=== PATIENT | female | born 1985 | race Caucasian/White ===

== ENCOUNTER 2016-11-12 17:15 | Emergency (ER) | payer OTHER ==
[2016-11-12] MEDS ORDERED: Zofran 4 MG/2 ML VIAL IV ONE ×2 (18:12→22:25)
[2016-11-12] MEDS ORDERED: Sodium Chloride 0.9% 1000 ML 1,000 ML IV SCH (18:15)
[2016-11-12] MEDS ORDERED: SUBLIMAZE 100 MCG/2 ML IV ONE (18:29)
[2016-11-12] MEDS ORDERED: Sodium Chloride 0.9% 1000 ML 1,000 ML ONE (18:31)
[2016-11-12] MEDS ORDERED: Zofran 4 MG/2 ML VIAL ONE ×2 (18:31→22:26)
[2016-11-12] MEDS ORDERED: SUBLIMAZE 100 MCG/2 ML ONE (18:31)
[2016-11-12 18:39] LABS: BASOPHIL % 0.8 % (0.0-0.4); Eosinophil % 2.3 % (0.00-5.0); Granulocytes % 44.1 % (36.0-66.0); Lymphocytes % 44.9 % (24.0-44.0); Mean Cell Volume 89.4 fl (78-100); Mean Corpuscular Hemoglobin 29.4 pg (26-32); Monocytes % 7.9 % (0.0-12.0); Platelet Count 381 K/mm3 (150-450); Red Blood Count 4.15 M/mm3 (4.1-5.4); Red Cell Distribution Width 12.7 % (11.5-14.0); White Blood Count 10.3 K/mm3 (4.0-10.5)
[2016-11-12 18:50] LABS: Bacteria FEW /HPF (NEGATIVE); COMPLETE URINE MICROSCOPIC? YES; Collection Type CLEAN CATCH; Epithelial Cells FEW /HPF (FEW); Ph 6.5 (5-6); WBC 0-2 /HPF (0-5)
[2016-11-12 19:08] LABS: ALBUMIN 3.7 g/dL (3.4-5.0); ALKALINE PHOSPHATASE 84 U/L (46-116); ANION GAP 12.3 MEQ/L (5-15); BILIRUBIN,TOTAL 0.8 mg/dL (0.2-1.0); BLOOD UREA NITROGEN 9 mg/dL (9-20); CHLORIDE 104 mEq/L (98-107); Carbon Dioxide 27.9 mEq/L (21-32); Glucose 106 MG/DL (70-110); LIPASE 117 U/L (73-393); Potassium 3.9 mEq/L (3.5-5.1); SGPT/ALT 19 U/L (12-78); SODIUM 140 mEq/L (136-145)
[2016-11-12 20:24] LABS: SGOT/AST 22 U/L (15-37)
[2016-11-12 21:51] VITALS: BP 127/60; PULSE 71; O2SAT 100
--- NOTE | 2016-11-12 22:07 | ERPHSYRPT ---
- History of Present Illness Time Seen by Provider: 11/12/16 18:45 Historian: patient Exam Limitations: clinical condition Patient Subjective Stated Complaint: pt co abd pain to epigastric area that radiates to back, pain on and off, nausea,no vomiting, no fever Triage Nursing Assessment: pt alert, walked in gaurding abd, pt moaning, resp easy.abd soft, no edema noted Physician History: PATIENT COMPLAINS OF INTERMITTENT RIGHT UPPER ABDOMINAL PAINS FOR 6 MONTHS WHICH RADIATES TO BACK. DENIES FEVER, CHILLS, NAUSEA OR EMESIS. PATIENT EVALUATED 08/11/[address] SCAN, 08/13/2016 NORMAL HIDA SCAN WITH EJECTION FRACTION 66% AND A NORMAL GALL BLADDER ULTRASOUND. PATIENT HAS HISTORY OF FIBROMYALGIA, HAS TAKEN OPIATES CHRONICALLY FOR YEARS. Timing/Duration: week(s) Activities at Onset: none Quality: cramping Abdominal Pain Onset Location: RUQ Pain Radiation: back Severity of Pain-Max: moderate Severity of Pain-Current: moderate Modifying Factors: Improves With: eating Associated Symptoms: denies symptoms Previous symptoms: same symptoms as today Allergies/Adverse Reactions: Penicillins Allergy (Intermediate, Verified 11/12/16 17:59) Hives cephalexin monohydrate [From Keflex] Allergy (Mild, Verified 11/12/16 17:59) Rash Home Medications: Alprazolam [Xanax] 1 mg PO TID 07/15/12 [History] Pregabalin [Lyrica] 75 mg PO BID 03/13/16 [History] Loratadine 10 mg [Claritin 10 mg] 10 mg PO DAILY 08/11/16 [History] Omeprazole 20 MG [Prilosec 20 mg] 20 mg PO DAILY 08/11/16 [History] Hydrocodone/APAP 10/325 mg [[place] 10/325 MG Tablet] 1 tab PO Q6H PRN PRN 09/08/16 [History] Hx Tetanus, Diphtheria Vaccination/Date Given: Yes Hx Influenza Vaccination/Date Given: No Hx Pneumococcal Vaccination/Date Given: No Immunizations Up to Date: Yes - Review of Systems Constitutional: No Fever, No Chills Eyes: No Symptoms Ears, Nose, & Throat: No Symptoms Respiratory: No Symptoms, No Cough, No Dyspnea Cardiac: No Symptoms, No Chest Pain, No Edema, No Syncope Abdominal/Gastrointestinal: Abdominal Pain, No Nausea, No Vomiting, No Diarrhea Genitourinary Symptoms: No Symptoms, No Dysuria Musculoskeletal: No Symptoms, No Back Pain, No Neck Pain Skin: No Symptoms, No Rash Neurological: No Dizziness, No Focal Weakness, No Sensory Changes Psychological: No Symptoms Endocrine: No Symptoms All Other Systems: Reviewed and Negative - Past Medical History Pertinent Past Medical History: Yes Neurological History: Migraines ENT History: No Pertinent History Cardiac History: Arrhythmia Respiratory History: No Pertinent History Endocrine Medical History: Other Musculoskeletal History: Fibromyalgia, Rheumatoid Arthritis GI Medical History: No Pertinent History History: No Pertinent History Psycho-Social History: Anxiety, Depression Female Reproductive Disorders: Other Other Medical History: OVARIAN CYSTS, hpv - Past Surgical History Past Surgical History: Yes Neuro Surgical History: No Pertinent History Cardiac: No Pertinent History Respiratory: No Pertinent History Gastrointestinal: No Pertinent History Genitourinary: No Pertinent History Musculoskeletal: No Pertinent History Female Surgical History: Section, Tubal Ligation Other Surgical History: colonoscopy et egd - Social History Smoking Status: Never smoker How long have you smoked: YRS Exposure to second hand smoke: Yes Drug Use: none Patient Lives Alone: No - Female History Hx Last Menstrual Period: week ago Hx Now: No - Nursing Vital Signs Nursing Vital Signs: Initial Vital Signs Temperature 98.1 F Temperature Source Oral Pulse Rate 71 Respiratory Rate 18 Blood Pressure [] 127/60 Pain Intensity 5 - Physical Exam General Appearance: mild distress Eye Exam: PERRL/EOMI, eyes nml inspection Ears, Nose, Throat Exam: normal ENT inspection, pharynx normal, moist mucous membranes Neck Exam: normal inspection, non-tender, supple, full range of motion Respiratory Exam: normal breath sounds, lungs clear, No respiratory distress Cardiovascular Exam: regular rate/rhythm, normal heart sounds Gastrointestinal/Abdomen Exam: soft, normal bowel sounds, tenderness (RIGHT UPPER QUAD TENDERNESS, NO GUARDING), No mass Back Exam: normal inspection, normal range of motion, No CVA tenderness, No vertebral tenderness Extremity Exam: normal inspection, normal range of motion, pelvis stable Neurologic Exam: alert, oriented x 3, cooperative, normal mood/affect, nml cerebellar function, sensation nml, No motor deficits Skin Exam: normal color, warm, dry SpO2 Interpretation: normal SpO2: 100 Oxygen Delivery: Room Air - CT Exams Abdomen/Pelvis CT Interpretation: Discussed w/radiologist (COMPARED TO THE STUDY OF 08/11/2017 , THERE IS NEW DIFFUSE MODERATE FECAL STASIS, WITHOUT OBSTRUCTION, INCIDENTAL HEPATIC AND RENAL CYST) Ordered Tests: Active Orders 24 hr Category Date Time Status IV Insertion STAT Care 11/12/16 18:12 Active ABDOMEN AND PELVIS W CONTRAST [CT] Stat Exams 11/12/16 20:37 Taken AMYLASE Stat Lab 11/12/16 18:30 Completed CBC W DIFF Stat Lab 11/12/16 18:30 Completed CMP Stat Lab 11/12/16 18:30 Completed HCG,QUALITATIVE URINE Stat Lab 11/12/16 18:34 Completed LIPASE Stat Lab 11/12/16 18:30 Completed UA W/ MICROSCOPIC Stat Lab 11/12/16 18:21 Completed Urine Triage Profile Stat Lab 11/12/16 18:34 Completed Medication Summary Generic Name Dose Route Start Last Admin Trade Name Freq PRN Reason Stop Dose Admin Sodium Chloride 1,000 mls @ 1,000 mls/hr 11/12/16 18:15 11/12/16 18:32 Sodium Chloride 0.9% 1000 Ml IV 12/12/16 18:14 1,000 mls/hr .Q1H ERI Administration Discontinued Medications Generic Name Dose Route Start Last Admin Trade Name Freq PRN Reason Stop Dose Admin Fentanyl Citrate 100 mcg 11/12/16 18:29 11/12/16 18:32 Sublimaze 100 Mcg/2 Ml IV 11/12/16 18:30 100 mcg STAT ONE Administration Fentanyl Citrate Confirm 11/12/16 18:31 Sublimaze 100 Mcg/2 Ml Administered 11/12/16 18:32 Dose 100 mcg .ROUTE .STK-MED ONE Sodium Chloride Confirm 11/12/16 18:31 Sodium Chloride 0.9% 1000 Ml Administered 11/12/16 18:32 Dose 1,000 mls @ ud .ROUTE .STK-MED ONE Ondansetron HCl 4 mg 11/12/16 18:12 11/12/16 18:32 Zofran 4 Mg/2 Ml Vial IV 11/12/16 18:13 4 mg STAT ONE Administration Ondansetron HCl Confirm 11/12/16 18:31 Zofran 4 Mg/2 Ml Vial Administered 11/12/16 18:32 Dose 4 mg .ROUTE .STK-MED ONE Ondansetron HCl 4 mg 11/12/16 22:25 02/27/17 22:27 Zofran 4 Mg/2 Ml Vial IV 11/12/16 22:26 4 mg STAT ONE Administration Ondansetron HCl Confirm 11/12/16 22:26 Zofran 4 Mg/2 Ml Vial Administered 11/12/16 22:27 Dose 4 mg .ROUTE .STK-MED ONE Promethazine HCl 25 mg 11/12/16 22:13 11/12/16 22:23 Phenergan 25 Mg Inj IM 11/12/16 22:14 Not Given STAT ONE Promethazine HCl Confirm 11/12/16 22:17 Phenergan 25 Mg Inj Administered 11/12/16 22:18 Dose 25 mg .ROUTE .STK-MED ONE Lab/Rad Data: Laboratory Result Diagrams 11/12/16 18:30 11/12/16 18:30 Laboratory Results 11/12/16 11/12/16 11/12/16 Range/Units 18:34 18:34 18:30 WBC (4.0-10.5) K/mm3 RBC (4.1-5.4) M/mm3 Hgb (12.0-16.0) gm/dl Hct (35-47) % MCV (78-100) fl MCH (26-32) pg MCHC (32-36) g/dl RDW (11.5-14.0) % Plt Count (150-450) K/mm3 MPV (6-9.5) fl Gran % (36.0-66.0) % Lymphocytes % (24.0-44.0) % Monocytes % (0.0-12.0) % Eosinophils % (0.00-5.0) % Basophils % (0.0-0.4) % Basophils # (0-0.4) Sodium 140 (136-145) mEq/L Potassium 3.9 (3.5-5.1) mEq/L Chloride 104 (98-107) mEq/L Carbon Dioxide 27.9 (21-32) mEq/L Anion Gap 12.3 (5-15) MEQ/L BUN 9 (9-20) mg/dL Creatinine 0.62 (0.55-1.30) mg/dl Estimated GFR > 60 ML/MIN Glucose 106 (70-110) MG/DL Calcium 8.9 (8.5-10.1) mg/dL Total Bilirubin 0.8 (0.2-1.0) mg/dL AST 22 (15-37) U/L ALT 19 (12-78) U/L Alkaline Phosphatase 84 (46-116) U/L Serum Total Protein 7.0 (6.4-8.2) gm/dL Albumin 3.7 (3.4-5.0) g/dL Amylase 40 (25-115) U/L Lipase 117 (73-393) U/L Ur Collection Type Urine Color (YELLOW) Urine Appearance (CLEAR) Urine pH (5-6) Ur Specific [place] (1.005-1.025) Urine Protein (Negative) Urine Glucose (UA) (NEGATIVE) mg/dL Urine Ketones (NEGATIVE) Urine Nitrite (NEGATIVE) Urine Bilirubin (NEGATIVE) Urine Urobilinogen (0-1) mg/dL Urine WBC (Auto) (NEGATIVE) Urine RBC (Auto) (0-5) Mac/ul Urine Microscopic RBC (0-2) /HPF Urine Microscopic WBC (0-5) /HPF Ur Epithelial Cells (FEW) /HPF Urine Bacteria (NEGATIVE) /HPF Urine HCG, Qual NEGATIVE (Negative) Urine Opiates Level POS. (NEGATIVE) Ur Methadone NEG. (NEGATIVE) Urine Barbiturates NEG. (NEGATIVE) Ur Phencyclidine (PCP) NEG. (NEGATIVE) Urine Amphetamine NEG. (NEGATIVE) U Benzodiazepine Level POS. (NEGATIVE) Urine Cocaine NEG. (NEGATIVE) Urine Marijuana (THC) NEG. (NEGATIVE) Specimen Received 11/12/16 11/12/16 Range/Units 18:30 18:21 WBC 10.3 (4.0-10.5) K/mm3 RBC 4.15 (4.1-5.4) M/mm3 Hgb 12.2 (12.0-16.0) gm/dl Hct 37.1 (35-47) % MCV 89.4 (78-100) fl MCH 29.4 (26-32) pg MCHC 32.9 (32-36) g/dl RDW 12.7 (11.5-14.0) % Plt Count 381 (150-450) K/mm3 MPV 9.0 (6-9.5) fl Gran % 44.1 (36.0-66.0) % Lymphocytes % 44.9 H (24.0-44.0) % Monocytes % 7.9 (0.0-12.0) % Eosinophils % 2.3 (0.00-5.0) % Basophils % 0.8 (0.0-0.4) % Basophils # 0.08 (0-0.4) Sodium (136-145) mEq/L Potassium (3.5-5.1) mEq/L Chloride (98-107) mEq/L Carbon Dioxide (21-32) mEq/L Anion Gap (5-15) MEQ/L BUN (9-20) mg/dL Creatinine (0.55-1.30) mg/dl Estimated GFR ML/MIN Glucose (70-110) MG/DL Calcium (8.5-10.1) mg/dL Total Bilirubin (0.2-1.0) mg/dL AST (15-37) U/L ALT (12-78) U/L Alkaline Phosphatase (46-116) U/L Serum Total Protein (6.4-8.2) gm/dL Albumin (3.4-5.0) g/dL Amylase (25-115) U/L Lipase (73-393) U/L Ur Collection Type CLEAN CATCH Urine Color YELLOW (YELLOW) Urine Appearance CLEAR (CLEAR) Urine pH 6.5 (5-6) Ur Specific [place] 1.020 (1.005-1.025) Urine Protein NEGATIVE (Negative) Urine Glucose (UA) NEGATIVE (NEGATIVE) mg/dL Urine Ketones NEGATIVE (NEGATIVE) Urine Nitrite NEGATIVE (NEGATIVE) Urine Bilirubin NEGATIVE (NEGATIVE) Urine Urobilinogen 0.2 (0-1) mg/dL Urine WBC (Auto) NEGATIVE (NEGATIVE) Urine RBC (Auto) TRACE-INTACT (0-5) Mac/ul Urine Microscopic RBC 2-5 (0-2) /HPF Urine Microscopic WBC 0-2 (0-5) /HPF Ur Epithelial Cells FEW (FEW) /HPF Urine Bacteria FEW (NEGATIVE) /HPF Urine HCG, Qual (Negative) Urine Opiates Level (NEGATIVE) Ur Methadone (NEGATIVE) Urine Barbiturates (NEGATIVE) Ur Phencyclidine (PCP) (NEGATIVE) Urine Amphetamine (NEGATIVE) U Benzodiazepine Level (NEGATIVE) Urine Cocaine (NEGATIVE) Urine Marijuana (THC) (NEGATIVE) Specimen Received 11/12/16 1830 - Departure Time of Disposition: 22:50 Departure Disposition: Home Clinical Impression: ABDOMINAL PAIN Condition: Stable Critical Care Time: No Referrals: FRED NEWELL [Primary Care Provider] - Additional Instructions: ZOFRAN 4MG EVERY 4 HOURS FOR NAUSEA. PHENERGAN SUPPOSITORY 25MG EVERY 4 HOURS FOR NAUSEA. CONSULT YOUR GENERAL SURGEON FOR FOLLOWUP. Prescriptions: Ondansetron [Zofran Odt] 4 mg PO Q4HPRN PRN #6 tab.rapdis PRN Reason: Nausea Promethazine HCl 25 mg Supp [Phenergan 25 mg Supp] 25 mg [place] Q4H PRN PRN # 10 supp.rect PRN Reason: Nausea
[2016-11-12] MEDS ORDERED: Phenergan 25 MG INJ IM ONE (22:13)
[2016-11-12] MEDS ORDERED: Phenergan 25 MG INJ ONE (22:17)
--- NOTE | 2016-11-13 08:53 | XRAY ---
Indication: Right upper quadrant and right chest/abdomen pain. Nausea. Multiple contiguous axial images obtained through the abdomen and pelvis using 80 cc Isovue 370 contrast only. Comparison: August 11, 2016. Lung bases essentially clear. Heart is not enlarged. Noncontrasted stomach and bowel loops appear nonobstructed. There is now moderate scattered colonic fecal debris throughout. Normal appendix. No free fluid/air. Uterus is prominent with thickened endometrial cavity, possibly related to menses. Endometrial cavity demonstrates configuration suggesting arcuate uterus. A few subcentimeter bilateral renal cysts. Tiny 4 mm right lobe hepatic cyst near the dome of the diaphragm. Remaining liver, gallbladder, pancreas, spleen, adrenal glands, kidneys, ureters, bladder, and aorta appear unremarkable. No pathologic retroperitoneal lymphadenopathy. Osseous structures intact. Impression: 1. Fecal stasis without obstruction. 2. No acute intra-abdominal/pelvic abnormalities. 3. Prominent arcuate uterus with thickened endometrial cavity presumed related to menses. Pelvic sonogram may yield further information if clinically warranted. 4. Incidental hepatic/renal cysts. CT DI 21.11
== END 2016-11-12 22:48 | disposition home or self-care (01) ==
LOC: ED 17:15
DX: R10.13 Epigastric pain (principal); R10.11 Right upper quadrant pain; Z79.891 Long term (current) use of opiate analgesic
CPT/HCPCS: 36000; 36415; 74177; 80053; 80307; 81000; 82150; 83690; 84703; 85025; 96360; 96374; 96375; 96376; 99284; J2405; J2550; J3010

== ENCOUNTER 2016-12-20 11:12 | Emergency (ER) | payer OTHER ==
[2016-12-20 11:40] VITALS: BP 146/83
[2016-12-20 12:05] VITALS: O2SAT 99
--- NOTE | 2016-12-20 12:50 | ERPHSYRPT ---
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 c/o pain on the left side of body including left back/side, left leg and left foot/ankle. pt states "it hurts walk and is tender to touch." Triage Nursing Assessment: PT WALKED INTO ER WITH A SLIGHT LIMP, FAVORING THE LEFT FOOT. SKIN WARM PINK AND DRY. REASPIRATIONS EVEN AND UNLABORED. NO EDEDMA NOT THE LEFT FOOT. SMALL BRUISE ON THE BACK/LEFT SIDE OF THE ANKLE. Physician History: CC: fell Hx: 31 y/o patient of Dr Florence fell on stairs yesterday. She has pain in the left hip and left lower leg/foot area. No neck or back injury. No head injury or LOC. She is planning to see pain management for chronic pain syndrome. No N/T /W. States not . Occurred: yesterday Reason for Fall: slipped (on 4 steps) Loss of Consciousness: no loss of consciousness Allergies/Adverse Reactions: Penicillins Allergy (Intermediate, Verified 11/12/16 17:59) Hives cephalexin monohydrate [From Keflex] Allergy (Mild, Verified 11/12/16 17:59) Rash Home Medications: Alprazolam [Xanax] 1 mg PO TID 07/15/12 [History] Pregabalin [Lyrica] 75 mg PO BID 03/13/16 [History] Omeprazole 20 MG [Prilosec 20 mg] 20 mg PO DAILY 08/11/16 [History] Hydrocodone/APAP 10/325 mg [Sage 10/325 MG Tablet] 1 tab PO Q6H PRN PRN 09/08/16 [History] Aspirin [Aspirin EC] 81 mg PO DAILY 12/06/16 [History] Celecoxib [Celebrex] 200 mg PO HS 12/06/16 [History] Hx Tetanus, Diphtheria Vaccination/Date Given: Yes Hx Influenza Vaccination/Date Given: No Hx Pneumococcal Vaccination/Date Given: No Immunizations Up to Date: Yes - Review of Systems Constitutional: No Symptoms Respiratory: No Dyspnea Cardiac: No Chest Pain Abdominal/Gastrointestinal: No Abdominal Pain Musculoskeletal: Back Pain (chronic), Fall, Joint Pain, No Neck Pain Skin: No Rash Neurological: No Focal Weakness, No Headache, No Parasthesia - Past Medical History Pertinent Past Medical History: Yes Neurological History: Migraines ENT History: No Pertinent History Cardiac History: Arrhythmia Respiratory History: No Pertinent History Endocrine Medical History: Other Musculoskeletal History: Arthritis, Fibromyalgia, Rheumatoid Arthritis GI Medical History: No Pertinent History History: No Pertinent History Psycho-Social History: Anxiety, Depression Female Reproductive Disorders: Other Other Medical History: OVARIAN CYSTS, hpv - Past Surgical History Past Surgical History: Yes Neuro Surgical History: No Pertinent History Cardiac: Cardiac Catheterization Respiratory: No Pertinent History Gastrointestinal: No Pertinent History Genitourinary: No Pertinent History Musculoskeletal: No Pertinent History Female Surgical History: Section, Tubal Ligation Other Surgical History: colonoscopy et egd. heart cath- sep 20 2016 - Social History Smoking Status: Never smoker How long have you smoked: YRS Exposure to second hand smoke: Yes Drug Use: none Patient Lives Alone: No - Female History Hx Last Menstrual Period: 11/25/2016 Hx Now: No - Nursing Vital Signs Nursing Vital Signs: Initial Vital Signs Temperature 98.3 F Temperature Source Oral Pulse Rate 99 Respiratory Rate 18 Blood Pressure [Left Arm] 146/83 Pain Intensity 8 - Ish Coma Score Best Eye Response (Ish): (4) open spontaneously Best Verbal Response (Homer): (5) oriented Best Motor Response (Homer): (6) obeys commands Homer Total: 15 - Physical Exam General Appearance: alert Head Injury: no evidence of injury Eye Exam: PERRL/EOMI Neck Exam: supple, No mid-line tenderness Respiratory/Chest Exam: normal breath sounds, No chest tenderness Cardiovascular Exam: regular rate/rhythm Gastrointestinal Exam: soft, No tenderness, No distention Extremity Exam: other (small left lower leg eccymcosis posterior lower. Some toe and ankle and hip tenderness. No swelling. Skin intact.) Neurologic Exam: alert, oriented x 3, cooperative, sensation nml, No motor deficits Skin Exam: warm, dry SpO2 Interpretation: normal SpO2: 99 Oxygen Delivery: Room Air - Course Nursing assessment & vital signs reviewed: Yes Ordered Tests: Active Orders 24 hr Category Date Time Status Marcello Bandage Application -[facility] STAT Care 12/20/16 13:00 Active Cold Application STAT Care 12/20/16 12:18 Active FOOT (MINIMUM 3 VIEWS) Stat Exams 12/20/16 12:17 Completed HIP UNI (2V) INCL PEL IF DONE Stat Exams 12/20/16 12:17 Completed LOWER LEG Stat Exams 12/20/16 12:17 Completed Medication Summary Generic Name Dose Route Start Last Admin Trade Name David PRN Reason Stop Dose Admin Ibuprofen 600 mg 12/20/16 13:02 Motrin 600 Mg PO 12/20/16 13:03 STAT ONE - Progress Progress Note: 12/20/16 12:50 Offered pt toradol shot and she declines. Xrays ordered. 12/20/16 13:02 She chose motrin here po as does not like needles. Xrays of foot, lower leg, hip negative. Marcello wrap applied. Instr givne. Counseled pt/family regarding: diagnosis, need for follow-up, rad results - Departure Time of Disposition: 13:03 Departure Disposition: Home Clinical Impression: Fall (on) (from) other stairs and steps, initial encounter Contusion of left leg Qualifiers: Encounter type: initial encounter Qualified Code(s): S80.12XA - Contusion of left lower leg, initial encounter Condition: Stable Critical Care Time: No Referrals: FRED FLORENCE [Primary Care Provider] - Instructions: Contusion Additional Instructions: SPRAINS/STRAINS/CONTUSIONS 1. Rest the affected area as much as possible for the next few days. 2. Apply ice to the affected area for 20-30 minutes at a time, several times a day. 3. If you receive an elastic wrap, wear it only while awake for comfort and support. Re-wrap the elastic wrap if it feels too tight or too loose. 4. If swelling is present, elevate the affected part above the level of the heart for at least 2 to 3 days. 5. Use splints, slings, or crutches as instructed. 6. Watch for severe swelling, coldness, numbness, and discoloration of the fingers and toes. See your family physician or return to the emergency department if any of these are noted. Rx motrin=ibuprofen Follow up with Dr Florence Prescriptions: Ibuprofen 600 mg PO Q6H PRN PRN #24 tablet PRN Reason: Pain
--- NOTE | 2016-12-20 12:54 | XRAY ---
Indication: Pain following fall down stairs. Comparison: None 2 views of the left lower leg demonstrates normal bones, articulation, and soft tissues.
--- NOTE | 2016-12-20 12:56 | XRAY ---
Indication: Pain following fall down stairs. Comparison: None 3 nonweightbearing views of the left foot demonstrates normal variant for prominent fused os tibiale externum. No other bony, articular, and soft tissues.
--- NOTE | 2016-12-20 12:58 | XRAY ---
Indication: Pain following fall down stairs. Comparison: None 2 views of the left hip demonstrates normal bones, articulation, and soft tissues.
[2016-12-20] MEDS ORDERED: MOTRIN 600 MG PO ONE (13:02)
[2016-12-20 13:37] VITALS: PULSE 78
== END 2016-12-20 13:20 | disposition home or self-care (01) ==
LOC: ED 11:12
DX: S80.12XA Contusion of left lower leg, initial encounter (principal); W10.9XXA Fall (on) (from) unspecified stairs and steps, initial encounter; M25.552 Pain in left hip; M79.662 Pain in left lower leg
CPT/HCPCS: 73502; 73590; 73630; 99283; 99284

== ENCOUNTER 2017-01-04 10:59 | Emergency (ER) | payer OTHER ==
[2017-01-04 11:08] VITALS: O2SAT 97
--- NOTE | 2017-01-04 11:29 | ERPHSYRPT ---
- History of Present Illness Time Seen by Provider: 01/04/17 11:19 Exam Limitations: no limitations Patient Subjective Stated Complaint: rt earache Triage Nursing Assessment: rt earache for 1 week. saw this week and dx inner ear. pain worse to rt ear and now lt ear is hurting also. no fever. no ear drainage Physician History: The patient is a 31-year-old female with her complaining of right ear pain for several days. She has been taking azithromycin for otitis media on the right side for 3 days. She states her right ear is hurting worse today. She had her daughter here at the hospital for an imaging study that was not performed and as she was sitting in the van she thought I might as well come in and be seen because my ear still hurting. She's been nauseated and has taken Zofran 4. Her past medical history is significant for GERD and frequent ear infections. Timing/Duration: gradual onset Severity: moderate ENT Location: ear (R) Prearrival Treatment: prescription meds Modifying Factors: Improves With: nothing Allergies/Adverse Reactions: Penicillins Allergy (Intermediate, Verified 01/04/17 11:08) Hives cephalexin monohydrate [From [employer]] Allergy (Mild, Verified 01/04/17 11:08) Rash Home Medications: Pregabalin [Lyrica] 75 mg PO BID 03/13/16 [History] Omeprazole 20 MG [Prilosec 20 mg] 20 mg PO DAILY 08/11/16 [History] Aspirin [Aspirin EC] 81 mg PO DAILY 12/06/16 [History] Celecoxib [Celebrex] 200 mg PO HS 12/06/16 [History] Hx Tetanus, Diphtheria Vaccination/Date Given: Yes Hx Influenza Vaccination/Date Given: No Hx Pneumococcal Vaccination/Date Given: No Immunizations Up to Date: Yes - Review of Systems Constitutional: No Fever, No Chills Eyes: No Symptoms Ears, Nose, & Throat: Ear Pain Respiratory: No Cough, No Dyspnea Cardiac: No Chest Pain, No Edema, No Syncope Abdominal/Gastrointestinal: Nausea Genitourinary Symptoms: No Dysuria Musculoskeletal: No Back Pain, No Neck Pain Skin: No Rash Neurological: No Dizziness, No Focal Weakness, No Sensory Changes Psychological: No Symptoms Endocrine: No Symptoms Hematologic/Lymphatic: No Symptoms Immunological/Allergic: No Symptoms All Other Systems: Reviewed and Negative - Past Medical History Pertinent Past Medical History: Yes Neurological History: Migraines ENT History: No Pertinent History Cardiac History: Arrhythmia Respiratory History: No Pertinent History Endocrine Medical History: Other Musculoskeletal History: Arthritis, Fibromyalgia, Rheumatoid Arthritis GI Medical History: Crohns Disease History: No Pertinent History Psycho-Social History: Anxiety, Depression Female Reproductive Disorders: Other Other Medical History: OVARIAN CYSTS, hpv - Past Surgical History Past Surgical History: Yes Neuro Surgical History: No Pertinent History Cardiac: Cardiac Catheterization Respiratory: No Pertinent History Gastrointestinal: No Pertinent History Genitourinary: No Pertinent History Musculoskeletal: No Pertinent History Female Surgical History: Section, Tubal Ligation Other Surgical History: colonoscopy et egd. heart cath- sep 20 2016 - Social History Smoking Status: Never smoker How long have you smoked: YRS Exposure to second hand smoke: Yes Drug Use: none Patient Lives Alone: No - Female History Hx Last Menstrual Period: 1 week Hx Now: No - Nursing Vital Signs Nursing Vital Signs: Initial Vital Signs Temperature 97.8 F Temperature Source Oral Pulse Rate 88 Respiratory Rate 18 Blood Pressure [Right Arm] 146/67 Pain Intensity 7 - Physical Exam General Appearance: no apparent distress, alert Eye Exam: bilateral eye: PERRL, EOMI Ear Exam: bilateral ear: auricle normal, canal normal, TM normal, other ( Examination of both ear canals show cerumen without impaction. The TMs were visualized bilaterally and they were normal in appearance. The portions of the ear canals that were not up secured by cerumen were normal in appearance. The patient was offered cerumen removal by irrigation and she declined.) Nasal Exam: normal inspection Throat Exam: pharynx normal, moist mucus membranes, No tonsillar exudate Neck Exam: supple Cardiovascular/Respiratory Exam: normal breath sounds, regular rate/rhythm Abdominal Exam: non-tender, soft Neurologic Exam: alert, oriented x 3, sensation nml, No motor deficits Skin Exam: normal color, warm, dry SpO2 Interpretation: normal SpO2: 97 Oxygen Delivery: Room Air - Progress Progress: unchanged Counseled pt/family regarding: diagnosis - Departure Time of Disposition: 11:37 Departure Disposition: Home Clinical Impression: Ear pain Condition: Stable Critical Care Time: No Additional Instructions: You have wax buildup in both ears that you can removed by using nightly baby oil drops to each ear followed by warm water flushes in the shower. Examination of both ears showed normal eardrums. Other than the wax buildup in the ear canals looked normal. Continue with the azithromycin as directed earlier. You had been given a prescription for Auralgan and prednisone. Take Auralgan 2-4 drops 3-4 times a day as needed. Take prednisone 1 mg daily for 7 days. Follow-up as needed. Prescriptions: Prednisone 1 mg PO DAILY #7 tablet
[2017-01-04 11:51] VITALS: BP 123/70; PULSE 92
== END 2017-01-04 11:50 | disposition home or self-care (01) ==
LOC: ED 10:59
DX: H92.03 Otalgia, bilateral (principal)
CPT/HCPCS: 99283; 99284

== ENCOUNTER 2017-04-12 22:02 | Emergency (ER) | payer OTHER ==
[2017-04-12] MEDS ORDERED: MORPHINE SULFATE 4 MG INJ IV ONE (22:28)
[2017-04-12] MEDS ORDERED: Zofran 4 MG/2 ML VIAL IV ONE ×2 (22:28→23:40)
[2017-04-12] MEDS ORDERED: Sodium Chloride 0.9% 1000 ML 1,000 ML IV SCH (22:30)
--- NOTE | 2017-04-12 22:34 | ERPHSYRPT ---
- History of Present Illness Time Seen by Provider: 04/12/17 22:30 Historian: patient Exam Limitations: no limitations Patient Subjective Stated Complaint: pt states she has been having epigastric pain radiates to rt side and back and nasueated, no emesis. Triage Nursing Assessment: pt alert and oriented, answers questions approp. pt ambulatory with steady gait noted. respirations nonlabored with lungs cta. abd soft and tender. Physician History: 32 y/o female comes to the ER with complaints of epigastric and right upper quadrant abdominal pain that started this evening. Pt describes the pain as sharp, constant, with radiation to back, 8/10, and not relieved by percocet. Pt also admits to dry heaving but no vomiting, fever, chills, diarrhea or constipation. Pt says that she was diagnosed with gallstones last year and was told to F/U with a surgeon but she never did. Timing/Duration: today Activities at Onset: none Quality: sharpness Abdominal Pain Onset Location: RUQ, epigastric Pain Radiation: shoulder, back Severity of Pain-Max: severe Severity of Pain-Current: severe Modifying Factors: Improves With: nothing Associated Symptoms: No fever/chills, No vomiting Previous symptoms: no prior history Allergies/Adverse Reactions: Penicillins Allergy (Intermediate, Verified 04/12/17 22:30) Hives cephalexin monohydrate [From [employer]] Allergy (Mild, Verified 04/12/17 22:30) Rash Home Medications: Pregabalin [Lyrica] 150 mg PO BID 03/13/16 [History] Omeprazole 20 MG [Prilosec 20 mg] 20 mg PO DAILY 08/11/16 [History] Atorvastatin Calcium [Lipitor] 10 mg PO DAILY 04/12/17 [History] Buprenorphine HCl [Belbuca] 150 mcg BC BID 04/12/17 [History] Mesalamine [Lialda] 2.4 gm PO DAILY 04/12/17 [History] Oxycodone HCl/Acetaminophen [Percocet 5-325 mg Tablet] 1 each PO TID PRN [History] Hx Tetanus, Diphtheria Vaccination/Date Given: Yes Hx Influenza Vaccination/Date Given: No Hx Pneumococcal Vaccination/Date Given: No Immunizations Up to Date: Yes - Review of Systems Constitutional: No Fever, No Chills Eyes: No Symptoms Ears, Nose, & Throat: No Symptoms Respiratory: No Cough, No Dyspnea Cardiac: No Chest Pain, No Edema, No Syncope Abdominal/Gastrointestinal: Abdominal Pain, Nausea, No Vomiting, No Diarrhea Genitourinary Symptoms: No Dysuria Musculoskeletal: No Back Pain, No Neck Pain Skin: No Rash Neurological: No Dizziness, No Focal Weakness, No Sensory Changes Psychological: No Symptoms Endocrine: No Symptoms All Other Systems: Reviewed and Negative - Past Medical History Pertinent Past Medical History: Yes Neurological History: Migraines ENT History: No Pertinent History Cardiac History: Arrhythmia, High Cholesterol Respiratory History: No Pertinent History Endocrine Medical History: Other Musculoskeletal History: Arthritis, Fibromyalgia GI Medical History: Colitis, Crohns Disease History: No Pertinent History Psycho-Social History: Anxiety, Depression Female Reproductive Disorders: Other Other Medical History: OVARIAN CYSTS, hpv - Past Surgical History Past Surgical History: Yes Neuro Surgical History: No Pertinent History Cardiac: Cardiac Catheterization Respiratory: No Pertinent History Gastrointestinal: No Pertinent History Genitourinary: No Pertinent History Musculoskeletal: No Pertinent History Female Surgical History: Section, Tubal Ligation Other Surgical History: colonoscopy et egd. heart cath- sep 20 2016 - Social History Smoking Status: Former smoker How long have you smoked: YRS Exposure to second hand smoke: Yes Drug Use: none Patient Lives Alone: No - Female History Hx Last Menstrual Period: current Hx Now: No - Nursing Vital Signs Nursing Vital Signs: Initial Vital Signs Temperature 98.0 F 04/12/17 22:20 Pulse Rate 70 04/12/17 22:20 Respiratory Rate 20 04/12/17 22:20 Blood Pressure 144/83 04/12/17 22:20 O2 Sat by Pulse Oximetry 96 04/12/17 22:20 Pain Scale Pain Intensity 6 - Physical Exam General Appearance: mild distress, alert Eye Exam: PERRL/EOMI, eyes nml inspection Ears, Nose, Throat Exam: normal ENT inspection, pharynx normal, moist mucous membranes Neck Exam: normal inspection, non-tender, supple, full range of motion Respiratory Exam: normal breath sounds, lungs clear, No respiratory distress Cardiovascular Exam: regular rate/rhythm, normal heart sounds Gastrointestinal/Abdomen Exam: soft, normal bowel sounds, tenderness, No distention, No mass, No hepatomegaly Back Exam: normal inspection, normal range of motion, No CVA tenderness, No vertebral tenderness Extremity Exam: normal inspection, normal range of motion, pelvis stable Neurologic Exam: alert, oriented x 3, cooperative, normal mood/affect, nml cerebellar function, sensation nml, No motor deficits Skin Exam: normal color, warm, dry SpO2: 96 Oxygen Delivery: Room Air Ordered Tests: Active Orders 24 hr Category Date Time Status EKG-ER Only STAT Care 04/12/17 22:28 Active IV Insertion STAT Care 04/12/17 22:28 Active NPO (ED) STAT Care 04/12/17 22:28 Active GALLBLADDER [US] Stat Exams 04/12/17 22:29 Taken AMYLASE Stat Lab 04/12/17 22:20 Completed CBC W DIFF Stat Lab 04/12/17 22:20 Completed CMP Stat Lab 04/12/17 22:20 Completed HCG QUALITATIVE,SERUM Stat Lab 04/12/17 22:20 Completed LIPASE Stat Lab 04/12/17 22:20 Completed TROPONIN Q3H Lab 04/12/17 22:30 Completed TROPONIN Q3H Lab 04/13/17 01:30 Ordered TROPONIN Q3H Lab 04/13/17 04:30 Ordered TROPONIN Q3H Lab 04/13/17 07:30 Ordered TROPONIN Q3H Lab 04/13/17 10:30 Ordered UA W/ MICROSCOPIC Stat Lab 04/12/17 23:37 Completed Medication Summary Generic Name Dose Route Start Last Admin Trade Name Freq PRN Reason Stop Dose Admin Sodium Chloride 1,000 mls @ 100 mls/hr 04/12/17 22:30 04/12/17 22:43 Sodium Chloride 0.9% 1000 Ml IV 05/12/17 22:29 100 mls/hr .Q10H ERI Administration Discontinued Medications Generic Name Dose Route Start Last Admin Trade Name Freq PRN Reason Stop Dose Admin Ketorolac Tromethamine 30 mg 04/12/17 23:47 04/12/17 23:49 Toradol 30 Mg Injection IV 04/12/17 23:48 30 mg STAT ONE Administration Ketorolac Tromethamine Confirm 04/12/17 23:49 Toradol 30 Mg Injection Administered 04/12/17 23:50 Dose 30 mg .ROUTE .STK-MED ONE Morphine Sulfate 4 mg 04/12/17 22:28 04/12/17 22:45 Morphine Sulfate 4 Mg Inj IV 04/12/17 22:29 4 mg STAT ONE Administration Morphine Sulfate Confirm 04/12/17 22:41 Morphine Sulfate 4 Mg Inj Administered 04/12/17 22:42 Dose 4 mg .ROUTE .STK-MED ONE Ondansetron HCl 4 mg 04/12/17 22:28 04/12/17 22:45 Zofran 4 Mg/2 Ml Vial IV 04/12/17 22:29 4 mg STAT ONE Administration Ondansetron HCl Confirm 04/12/17 22:41 Zofran 4 Mg/2 Ml Vial Administered 04/12/17 22:42 Dose 4 mg .ROUTE .STK-MED ONE Ondansetron HCl 4 mg 04/12/17 23:40 04/12/17 23:43 Zofran 4 Mg/2 Ml Vial IV 04/12/17 23:41 4 mg STAT ONE Administration Ondansetron HCl Confirm 04/12/17 23:43 Zofran 4 Mg/2 Ml Vial Administered 04/12/17 23:44 Dose 4 mg .ROUTE .STK-MED ONE Lab/Rad Data: Laboratory Result Diagrams 04/12/17 22:20 04/12/17 22:20 Laboratory Results 04/12/17 04/12/17 04/12/17 Range/Units 23:37 22:30 22:20 WBC (4.0-10.5) K/mm3 RBC (4.1-5.4) M/mm3 Hgb (12.0-16.0) gm/dl Hct (35-47) % MCV (78-100) fl MCH (26-32) pg MCHC (32-36) g/dl RDW (11.5-14.0) % Plt Count (150-450) K/mm3 MPV (6-9.5) fl Gran % (36.0-66.0) % Lymphocytes % (24.0-44.0) % Monocytes % (0.0-12.0) % Eosinophils % (0.00-5.0) % Basophils % (0.0-0.4) % Basophils # (0-0.4) Sodium (136-145) mEq/L Potassium (3.5-5.1) mEq/L Chloride (98-107) mEq/L Carbon Dioxide (21-32) mEq/L Anion Gap (5-15) MEQ/L BUN (9-20) mg/dL Creatinine (0.55-1.30) mg/dl Estimated GFR ML/MIN Glucose (70-110) MG/DL Calcium (8.5-10.1) mg/dL Total Bilirubin (0.2-1.0) mg/dL AST (15-37) U/L ALT (12-78) U/L Alkaline Phosphatase (46-116) U/L Troponin I < 0.017 (0.000-0.056) ng/ml Serum Total Protein (6.4-8.2) gm/dL Albumin (3.4-5.0) g/dL Amylase (25-115) U/L Lipase (73-393) U/L Serum , Qual NEGATIVE (Negative) Ur Collection Type CLEAN CATCH Urine Color YELLOW (YELLOW) Urine Appearance CLEAR (CLEAR) Urine pH 7.0 (5-6) Ur Specific [place] 1.010 (1.005-1.025) Urine Protein NEGATIVE (Negative) Urine Ketones NEGATIVE (NEGATIVE) Urine Blood 250 (0-5) Mac/ul Urine Nitrite NEGATIVE (NEGATIVE) Urine Bilirubin NEGATIVE (NEGATIVE) Urine Urobilinogen NORMAL (0-1) mg/dL Ur Leukocyte Esterase NEGATIVE (NEGATIVE) Urine Microscopic RBC 2-5 (0-2) /HPF Urine Bacteria RARE (NEGATIVE) /HPF Urine Glucose NEGATIVE (NEGATIVE) mg/dL Specimen Received [id number] 04/12/17 04/12/17 Range/Units 22:20 22:20 WBC 8.7 (4.0-10.5) K/mm3 RBC 4.35 (4.1-5.4) M/mm3 Hgb 12.3 (12.0-16.0) gm/dl Hct 37.2 (35-47) % MCV 85.5 (78-100) fl MCH 28.3 (26-32) pg MCHC 33.1 (32-36) g/dl RDW 13.7 (11.5-14.0) % Plt Count 362 (150-450) K/mm3 MPV 9.2 (6-9.5) fl Gran % 43.0 (36.0-66.0) % Lymphocytes % 43.6 (24.0-44.0) % Monocytes % 8.4 (0.0-12.0) % Eosinophils % 4.3 (0.00-5.0) % Basophils % 0.7 (0.0-0.4) % Basophils # 0.06 (0-0.4) Sodium 142 (136-145) mEq/L Potassium 4.0 (3.5-5.1) mEq/L Chloride 106 (98-107) mEq/L Carbon Dioxide 25.7 (21-32) mEq/L Anion Gap 14.1 (5-15) MEQ/L BUN 7 L (9-20) mg/dL Creatinine 0.65 (0.55-1.30) mg/dl Estimated GFR > 60 ML/MIN Glucose 99 (70-110) MG/DL Calcium 9.3 (8.5-10.1) mg/dL Total Bilirubin 0.60 (0.2-1.0) mg/dL AST 81 H (15-37) U/L ALT 128 H (12-78) U/L Alkaline Phosphatase 72 (46-116) U/L Troponin I (0.000-0.056) ng/ml Serum Total Protein 7.1 (6.4-8.2) gm/dL Albumin 3.7 (3.4-5.0) g/dL Amylase 40 (25-115) U/L Lipase 95 (73-393) U/L Serum , Qual (Negative) Ur Collection Type Urine Color (YELLOW) Urine Appearance (CLEAR) Urine pH (5-6) Ur Specific [place] (1.005-1.025) Urine Protein (Negative) Urine Ketones (NEGATIVE) Urine Blood (0-5) Mac/ul Urine Nitrite (NEGATIVE) Urine Bilirubin (NEGATIVE) Urine Urobilinogen (0-1) mg/dL Ur Leukocyte Esterase (NEGATIVE) Urine Microscopic RBC (0-2) /HPF Urine Bacteria (NEGATIVE) /HPF Urine Glucose (NEGATIVE) mg/dL Specimen Received - Progress Progress: improved Progress Note: 04/13/17 00:05 The patient feels better after receiving morphine and zofran. Pt still having some pain and received toradol with relief of pain. The US abdomen and labs are within normal limits. Pt will F/U with Dr Carlos IRVIN for any additional recommendations. - Departure Time of Disposition: 00:06 Departure Disposition: Home Clinical Impression: Abdominal pain Qualifiers: Abdominal location: epigastric Qualified Code(s): R10.13 - Epigastric pain Condition: Stable Critical Care Time: No Referrals: NICOLE GAN [Primary Care Provider] - Instructions: Abdominal Pain-Adult Additional Instructions: Follow up with Dr Gonzalez for any further recommendations. Prescriptions: Ketorolac Tromethamine [Toradol] 10 mg PO QID PRN #20 tablet PRN Reason: Pain Ondansetron [Zofran Odt] 4 mg PO TID PRN #15 tab.rapdis PRN Reason: Nausea/Vomiting
[2017-04-12 22:39] LABS: BASOPHIL % 0.7 % (0.0-0.4); Eosinophil % 4.3 % (0.00-5.0); Lymphocytes % 43.6 % (24.0-44.0); Mean Cell Volume 85.5 fl (78-100); Mean Corpuscular Hemoglobin 28.3 pg (26-32); Mean Platelet Volume 9.2 fl (6-9.5); Monocytes % 8.4 % (0.0-12.0); Platelet Count 362 K/mm3 (150-450); Red Blood Count 4.35 M/mm3 (4.1-5.4); Red Cell Distribution Width 13.7 % (11.5-14.0); White Blood Count 8.7 K/mm3 (4.0-10.5)
[2017-04-12] MEDS ORDERED: Zofran 4 MG/2 ML VIAL ONE ×2 (22:41→23:43)
[2017-04-12] MEDS ORDERED: MORPHINE SULFATE 4 MG INJ ONE (22:41)
[2017-04-12] MEDS ORDERED: Sodium Chloride 0.9% 1000 ML 1,000 ML ONE (22:42)
[2017-04-12 22:57] LABS: ALBUMIN 3.7 g/dL (3.4-5.0); ALKALINE PHOSPHATASE 72 U/L (46-116); ANION GAP 14.1 MEQ/L (5-15); BLOOD UREA NITROGEN 7 mg/dL (9-20); CHLORIDE 106 mEq/L (98-107); Carbon Dioxide 25.7 mEq/L (21-32); Glucose 99 MG/DL (70-110); LIPASE 95 U/L (73-393); SGOT/AST 81 U/L (15-37); SGPT/ALT 128 U/L (12-78); SODIUM 142 mEq/L (136-145); Total Protein 7.1 gm/dL (6.4-8.2)
[2017-04-12 23:43] LABS: Bilirubin NEGATIVE (NEGATIVE); Blood 250 Ery/ul (0-5); COMPLETE URINE MICROSCOPIC? YES; Collection Type CLEAN CATCH; Glucose NEGATIVE (NEGATIVE); Leukocyte Esterase NEGATIVE (NEGATIVE)
[2017-04-12 23:44] LABS: ADD URINE CULTURE? NO (NO); Bacteria RARE /HPF (NEGATIVE)
[2017-04-12] MEDS ORDERED: TORAdol 30 mg Injection IV ONE (23:47)
[2017-04-12] MEDS ORDERED: TORAdol 30 mg Injection ONE (23:49)
[2017-04-13 00:23] VITALS: BP 116/67; PULSE 82; O2SAT 97
--- NOTE | 2017-04-13 08:52 | XRAY ---
Indication: Abdominal pain. Two-dimensional right upper quadrant abdominal sonogram performed. Comparison: August 13, 2016. Again normal appearing gallbladder, pancreas, liver, and right kidney. Common bile duct measures 3.6 mm. Right kidney measures 10.9 cm in length. No ascites. Impression: Stable negative gallbladder sonogram. Common: Preliminary report was given.
== END 2017-04-13 00:26 | disposition home or self-care (01) ==
LOC: ED 22:02
DX: R10.13 Epigastric pain (principal); R10.11 Right upper quadrant pain
CPT/HCPCS: 36000; 36415; 76705; 80053; 81000; 82150; 83690; 84484; 84703; 85025; 93005; 96360; 96361; 96374; 96375; 96376; 99284; J1885; J2270; J2405

== ENCOUNTER 2018-02-27 23:16 | Emergency (ER) | payer SELFPAY ==
[2018-02-27 23:37] VITALS: PULSE 78
[2018-02-27] MEDS ORDERED: Sodium Chloride 0.9% 1000 ML 1,000 ML IV STA (23:56)
[2018-02-27] MEDS ORDERED: TORAdol 30 mg Injection IV ONE (23:56)
[2018-02-27] MEDS ORDERED: BENADRYL 50 MG/ML IV ONE (23:56)
--- NOTE | 2018-02-28 00:02 | ERPHSYRPT ---
- History of Present Illness Time Seen by Provider: 02/27/18 23:57 Source: patient Patient Subjective Stated Complaint: mingraine since today. pain in left side of head affecting her left eye. sinilar to other migraines. Triage Nursing Assessment: alert and in the dark. states migraine starting this morning. affecting her left eye. has had similar in the past. nausea without vomiting. 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 No fevers. Patient apparently presented to [facility] emergency room and decided to come here because "they didn't give me what medicines I wanted. Patient apparently got morphine, Phenergan at [facility]. Past medical history includes migraines, arrhythmia, arthritis, fibromyalgia, hypercholesterolemia, colitis, Crohn's disease, anxiety, depression, ovarian cysts Allergies include penicillin, Keflex Past surgical history includes , tubal ligation, colonoscopy, heart catheter . Timing/Duration: today Severity: moderate Modifying Factors: Improves With: other (patient seen at [facility] given injection of phenergan and morphine. lthis is a totaleft one hour ago) Associated Symptoms: nausea, headaches, No vomiting, No abdominal pain, No shortness of breath, No heartburn, No diaphoresis, No cough, No chills, No chest pain, No fever, No loss of appetite, No malaise, No rash, No syncope, No seizure, No weakness Allergies/Adverse Reactions: Penicillins Allergy (Intermediate, Verified 04/12/17 22:30) Hives cephalexin monohydrate [From Keflex] Allergy (Mild, Verified 04/12/17 22:30) Rash Home Medications: Pregabalin [Lyrica 75 mg Cap] 150 mg PO BID 03/13/16 [History] Omeprazole 20 MG [Prilosec 20 mg] 20 mg PO DAILY 08/11/16 [History] Atorvastatin Calcium [Lipitor] 10 mg PO DAILY 04/12/17 [History] Buprenorphine HCl [Belbuca] 150 mcg BC BID 04/12/17 [History] Mesalamine [Lialda] 2.4 gm PO DAILY 04/12/17 [History] Oxycodone HCl/Acetaminophen [Percocet 5-325 mg Tablet] 1 each PO TID PRN [History] Hx Tetanus, Diphtheria Vaccination/Date Given: Yes Hx Influenza Vaccination/Date Given: No Hx Pneumococcal Vaccination/Date Given: No - Review of Systems Constitutional: No Fever, No Chills Eyes: Eye Pain, Photophobia, No Discharge, No Eye Redness, No Itchy, No Tearing , No Vision Changes, No Double Vision Ears, Nose, & Throat: No Symptoms Respiratory: No Cough, No Dyspnea Cardiac: No Chest Pain, No Edema, No Syncope Abdominal/Gastrointestinal: No Abdominal Pain, No Nausea, No Vomiting, No Diarrhea Genitourinary Symptoms: No Dysuria Musculoskeletal: No Back Pain, No Neck Pain Skin: No Rash Neurological: Headache, No Dizziness, No Focal Weakness, No Gait Changes, No Irritability, No Lethargy, No Paralysis, No Parasthesia, No Seizure, No Sensory Changes, No Speech Changes, No Tics, No Tremors, No Vertigo Psychological: No Symptoms Endocrine: No Symptoms All Other Systems: Reviewed and Negative - Past Medical History Pertinent Past Medical History: Yes Neurological History: Migraines ENT History: No Pertinent History Cardiac History: Arrhythmia Respiratory History: No Pertinent History Endocrine Medical History: Other Musculoskeletal History: Arthritis, Fibromyalgia, Rheumatoid Arthritis GI Medical History: Crohns Disease History: No Pertinent History Psycho-Social History: Anxiety, Depression Female Reproductive Disorders: Other Other Medical History: OVARIAN CYSTS, hpv - Past Surgical History Past Surgical History: Yes Neuro Surgical History: No Pertinent History Cardiac: Cardiac Catheterization Respiratory: No Pertinent History Gastrointestinal: No Pertinent History Genitourinary: No Pertinent History Musculoskeletal: No Pertinent History Female Surgical History: Section, Tubal Ligation Other Surgical History: colonoscopy et egd. heart cath- sep 20 2016 - Social History Smoking Status: Never smoker How long have you smoked: YRS Exposure to second hand smoke: No Drug Use: none Patient Lives Alone: No - Female History Hx Now: No - Nursing Vital Signs Nursing Vital Signs: Initial Vital Signs Temperature 97.8 F 02/27/18 23:30 Pulse Rate 78 02/27/18 23:30 Respiratory Rate 18 02/27/18 23:30 Blood Pressure 152/80 02/27/18 23:30 O2 Sat by Pulse Oximetry 100 06/14/18 23:30 Pain Scale Pain Intensity 8 - Physical Exam General Appearance: mild distress Eye Exam: PERRL/EOMI, eyes nml inspection, other (fundi are unremarkable) Ears, Nose, Throat Exam: normal ENT inspection, TMs normal, pharynx normal, moist mucous membranes Neck Exam: normal inspection, non-tender, supple, full range of motion Respiratory Exam: normal breath sounds, lungs clear, No respiratory distress Cardiovascular Exam: regular rate/rhythm, normal heart sounds, normal peripheral pulses Gastrointestinal/Abdomen Exam: soft, normal bowel sounds, No tenderness, No mass Back Exam: normal inspection Extremity Exam: normal inspection, normal range of motion, pelvis stable Neurologic Exam: alert, oriented x 3, cooperative, liaison planner II-XII nml as tested, normal mood/affect, nml cerebellar function, nml station & gait, sensation nml, No motor deficits Skin Exam: normal color, warm, dry, No rash Lymphatic Exam: No adenopathy SpO2 Interpretation: normal (100% ) SpO2: 100 Ordered Tests: Active Orders 24 hr Category Date Time Status IV Insertion STAT Care 02/27/18 23:56 Active Medication Summary Generic Name Dose Route Start Last Admin Trade Name Freq PRN Reason Stop Dose Admin Sodium Chloride 1,000 mls @ 999 mls/hr 02/27/18 23:56 02/28/18 00:20 Sodium Chloride 0.9% 1000 Ml IV 02/28/18 00:56 999 mls/hr .Q1H1M STA Administration Discontinued Medications Generic Name Dose Route Start Last Admin Trade Name Freq PRN Reason Stop Dose Admin Diphenhydramine HCl 25 mg 02/27/18 23:56 02/28/18 00:19 Benadryl 50 Mg/Ml IV 02/27/18 23:57 25 mg STAT ONE Administration Diphenhydramine HCl Confirm 02/28/18 00:03 Benadryl 50 Mg/Ml Administered 02/28/18 00:04 Dose 50 mg .ROUTE .STK-MED ONE Sodium Chloride Confirm 02/28/18 00:03 Sodium Chloride 0.9% 1000 Ml Administered 02/28/18 00:04 Dose 1,000 mls @ ud .ROUTE .STK-MED ONE Ketorolac Tromethamine 30 mg 02/27/18 23:56 02/28/18 00:20 Toradol 30 Mg Injection IV 02/27/18 23:57 30 mg STAT ONE Administration Ketorolac Tromethamine Confirm 02/28/18 00:03 Toradol 30 Mg Injection Administered 02/28/18 00:04 Dose 30 mg .ROUTE .[employer]-MED ONE - Progress Progress: improved Progress Note: 02/28/18 00:29 32-year-old white female with history of migraines, arrhythmia, arthritis, fibromyalgia, hypercholesterolemia, colitis, Crohn's disease, anxiety, depression, ovarian cysts arrives with complaint of a headache frontal radiating to her left side with photophobia symptoms since this morning she was seen just prior to arrival here at [facility] where she received 8 mg of morphine and 50 mg of Phenergan. Patient is with a essentially normal physical examination,. Patient is given IV normal saline she is receiving 1 L at this time she is receiving Benadryl 25 mg IV and Toradol 30 mg IV. Patient states she is better she is not completely pain-free. Patient appears to be quite stable she is on Percocet at home and last filled oxycodone/acetaminophen 7.5/325 #60 on February 24, 2018 she states she only took one of these today. Will plan on discharging this patient patient to return home rest, dark quiet room,. She is to take pain medication as prescribed by her family doctor and Dr. Johns She is to follow-up with her family doctor. She is to return for acute distress or for severe symptoms. - Departure Time of Disposition: 00:31 Departure Disposition: Home Clinical Impression: Migraine headache Qualifiers: Migraine type: unspecified Status migrainosus presence: without status migrainosus Intractability: not intractable Qualified Code(s): G43.909 - Migraine, unspecified, not intractable, without status migrainosus Condition: Fair Critical Care Time: No Referrals: NICOLE GAN [Primary Care Provider] - Instructions: Headache, Adult (DC) Additional Instructions: Return home. Rest in a dark quiet room. Pain medications as prescribed by your family doctor. Follow-up with your family doctor. Return for acute distress or for severe symptoms.
[2018-02-28] MEDS ORDERED: TORAdol 30 mg Injection ONE (00:03)
[2018-02-28] MEDS ORDERED: BENADRYL 50 MG/ML ONE (00:03)
[2018-02-28] MEDS ORDERED: Sodium Chloride 0.9% 1000 ML 1,000 ML ONE (00:03)
[2018-02-28 01:25] VITALS: BP 115/66; O2SAT 95
== END 2018-02-28 01:25 | disposition home or self-care (01) ==
LOC: ED 23:16
DX: G43.909 Migraine, unspecified, not intractable, without status migrainosus (principal); Z79.899 Other long term (current) drug therapy
CPT/HCPCS: 36000; 96365; 96374; 96375; 99284; J1200; J1885

== ENCOUNTER 2018-06-09 20:16 | Emergency (ER) | payer SELFPAY ==
--- NOTE | 2018-06-09 21:33 | ERPHSYRPT ---
- History of Present Illness Time Seen by Provider: 06/09/18 21:12 Historian: patient, family Exam Limitations: no limitations Patient Subjective Stated Complaint: Has Crohns and was in [facility] last week and today, Dr. Bowden wanted her to be admitted today to prepare her for a scope and get her pain under control today but Dr. Rosenthal refused to admit her, Triage Nursing Assessment: Pt stated that she has Crohns and was in [facility] last week and was going to be transfered to but then Dr Gonzalez told her to go on home and he would see her in the office, she has called the office and the doctor is out until June, stated that she went to [facility] today due to Dr. Bowden wanted her to be admitted for pain control and get prepared for a scope, Dr. Rosenthal refused to admit her, c/o of pain in upper quadrants of abdomen and down the medial section, N&V yesterday, no issue with bowels, pulses normal, vitals wnl, last intake this am Physician History: The patient is a 33-year-old female with her family complaining of abdominal pain. She has a long history of abdominal pain. 2 weeks ago her pain started again. Last week she was at [facility] for one week. She saw a doctor in the [facility] ER on Saturday for the pain and was given morphine and Zofran with relief. Her pain was severe again today. She went back to the [facility] ER tonight and was given Zofran and morphine and fluids with some improvement. Her doctor had told her to go to the ER and be admitted. They did not admit her. She comes to this ER wanting to be admitted for a colonoscopy. After her discharge during the hospital admission at [facility] , she was to follow up with a GI doctor. She states the GI doctor is out of town until June. Her history is somewhat confusing but she tells me she has Crohn's disease of her small intestine. She also told me that her last colonoscopy showed ulcerative colitis in her colon. She is quite anxious. She has been taking Percocet 7.5 mg at home and Phenergan and Zofran at home as well without complete relief.Her past medical history is significant for possible Crohn's, possible ulcerative colitis, anxiety, abdominal pain that is chronic, tubal ligation. Timing/Duration: week(s) (2), gradual onset, worse Activities at Onset: none Quality: sharpness Abdominal Pain Onset Location: epigastric Pain Radiation: no radiation Severity of Pain-Max: moderate Severity of Pain-Current: moderate Modifying Factors: Improves With: eating (worse) Associated Symptoms: nausea, vomiting, No diarrhea Previous symptoms: same symptoms as today, recently seen, recent hospitalization , recently treated Allergies/Adverse Reactions: Penicillins Allergy (Intermediate, Verified 06/09/18 20:38) Hives cephalexin monohydrate [From Keflex] Allergy (Mild, Verified 06/09/18 20:38) Rash Home Medications: Pregabalin [Lyrica 75 mg Cap] 150 mg PO BID 03/13/16 [History] Omeprazole 20 MG [Prilosec 20 mg] 20 mg PO DAILY 08/11/16 [History] Atorvastatin Calcium [Lipitor] 10 mg PO DAILY 04/12/17 [History] Mesalamine [Lialda] 2.4 gm PO DAILY 04/12/17 [History] Alprazolam 1 mg [Xanax 1 mg] 1 mg PO BID 06/09/18 [History] Dicyclomine HCl 20 mg [Bentyl 20 mg] 20 mg PO QID 06/09/18 [History] Oxycodone HCl/Acetaminophen [Oxycodon-Acetaminophen 7.5-325] 1 tab PO TID PRN [History] Promethazine HCl 25 mg [Phenergan 25 mg] 25 mg PO Q6H PRN 06/09/18 [ History] Hx Tetanus, Diphtheria Vaccination/Date Given: Yes Hx Influenza Vaccination/Date Given: No Hx Pneumococcal Vaccination/Date Given: No - Review of Systems Constitutional: No Fever, No Chills Eyes: No Symptoms Ears, Nose, & Throat: No Symptoms Respiratory: No Cough, No Dyspnea Cardiac: No Chest Pain, No Edema, No Syncope Abdominal/Gastrointestinal: Abdominal Pain, Nausea, Vomiting Genitourinary Symptoms: No Dysuria Musculoskeletal: No Back Pain, No Neck Pain Skin: No Rash Neurological: No Dizziness, No Focal Weakness, No Sensory Changes Psychological: No Symptoms Endocrine: No Symptoms Hematologic/Lymphatic: No Symptoms Immunological/Allergic: No Symptoms All Other Systems: Reviewed and Negative - Past Medical History Pertinent Past Medical History: Yes Neurological History: Migraines ENT History: No Pertinent History Cardiac History: Arrhythmia Respiratory History: No Pertinent History Endocrine Medical History: Other Musculoskeletal History: Arthritis, Fibromyalgia, Rheumatoid Arthritis GI Medical History: Crohns Disease History: No Pertinent History Psycho-Social History: Anxiety, Depression Female Reproductive Disorders: Other Other Medical History: OVARIAN CYSTS, hpv - Past Surgical History Past Surgical History: Yes Neuro Surgical History: No Pertinent History Cardiac: Cardiac Catheterization Respiratory: No Pertinent History Gastrointestinal: No Pertinent History Genitourinary: No Pertinent History Musculoskeletal: No Pertinent History Female Surgical History: Section, Tubal Ligation Other Surgical History: colonoscopy et egd. heart cath- sep 20 2016 - Social History Smoking Status: Current every day smoker How long have you smoked: 15 yrs Exposure to second hand smoke: No Drug Use: none Patient Lives Alone: No - Female History Hx Last Menstrual Period: 05/28/2018 Hx Now: No (tubal) - Nursing Vital Signs Nursing Vital Signs: Initial Vital Signs Temperature 97.4 F 06/09/18 20:23 Pulse Rate 93 H 06/09/18 20:23 Blood Pressure 125/69 06/09/18 20:23 O2 Sat by Pulse Oximetry 99 06/09/18 20:23 Pain Scale Pain Intensity 7 - Physical Exam General Appearance: anxiety Eye Exam: PERRL/EOMI, eyes nml inspection Ears, Nose, Throat Exam: normal ENT inspection, pharynx normal, moist mucous membranes Neck Exam: normal inspection, non-tender, supple, full range of motion Respiratory Exam: normal breath sounds, lungs clear, No respiratory distress Cardiovascular Exam: regular rate/rhythm, normal heart sounds Gastrointestinal/Abdomen Exam: soft, tenderness (generalized), No rebound Pelvic Exam: not done Rectal Exam: not done Back Exam: normal inspection, normal range of motion, No CVA tenderness, No vertebral tenderness Extremity Exam: normal inspection, normal range of motion, pelvis stable Neurologic Exam: alert, oriented x 3, cooperative, normal mood/affect, nml cerebellar function, sensation nml, No motor deficits Skin Exam: normal color, warm, dry SpO2 Interpretation: normal SpO2: 99 Oxygen Delivery: Room Air - CT Exams Abdomen/Pelvis CT Interpretation: Tele-radiologist Report (per Dr Miller), No appendicitis, Other (no acute findings.) Ordered Tests: Active Orders 24 hr Category Date Time Status Clean Catch Urine Specimen STAT Care 06/09/18 21:43 Active IV Insertion STAT Care 06/09/18 21:43 Active ABDOMEN AND PELVIS W/0 CONTRAS [CT] Stat Exams 06/09/18 21:43 Taken AMYLASE Stat Lab 06/09/18 21:45 Completed CBC W DIFF Stat Lab 06/09/18 21:45 Completed CMP Stat Lab 06/09/18 21:45 Completed HCG QUALITATIVE,SERUM Stat Lab 06/09/18 21:45 Completed LIPASE Stat Lab 06/09/18 21:45 Completed Lactic Acid Stat Lab 06/09/18 22:15 Results UA W/RFX UR CULTURE Stat Lab 06/09/18 22:45 Completed Urine Triage Profile Stat Lab 06/09/18 22:45 Completed Medication Summary Discontinued Medications Generic Name Dose Route Start Last Admin Trade Name Freq PRN Reason Stop Dose Admin Sodium Chloride 1,000 mls @ 999 mls/hr 06/09/18 21:43 06/09/18 23:33 Sodium Chloride 0.9% 1000 Ml IV 06/09/18 22:43 Infused .Q1H1M STA Infusion Sodium Chloride Confirm 06/09/18 21:50 Sodium Chloride 0.9% 1000 Ml Administered 06/09/18 21:51 Dose 1,000 mls @ ud .ROUTE .STK-MED ONE Lorazepam 1 mg 06/09/18 21:46 06/09/18 21:54 Ativan 2 Mg/1 Ml Vial IV 06/09/18 21:47 1 mg STAT ONE Administration Lorazepam Confirm 06/09/18 21:50 Ativan 2 Mg/1 Ml Vial Administered 06/09/18 21:51 Dose 2 mg .ROUTE .STK-MED ONE Morphine Sulfate 4 mg 06/09/18 21:43 06/09/18 21:53 Morphine Sulfate 4 Mg Inj IV 06/09/18 21:44 4 mg STAT ONE Administration Morphine Sulfate Confirm 06/09/18 21:50 Morphine Sulfate 4 Mg Inj Administered 06/09/18 21:51 Dose 4 mg .ROUTE .STK-MED ONE Ondansetron HCl 4 mg 06/09/18 21:43 06/09/18 21:53 Zofran 4 Mg/2 Ml Vial IV 06/09/18 21:44 4 mg STAT ONE Administration Ondansetron HCl Confirm 06/09/18 21:50 Zofran 4 Mg/2 Ml Vial Administered 06/09/18 21:51 Dose 4 mg .ROUTE .STK-MED ONE Lab/Rad Data: Laboratory Result Diagrams 06/09/18 21:45 06/09/18 21:45 Laboratory Results 06/09/18 06/09/18 06/09/18 Range/Units 22:45 22:45 22:15 WBC (4.0-10.5) K/mm3 RBC (4.1-5.4) M/mm3 Hgb (12.0-16.0) gm/dl Hct (35-47) % MCV (78-100) fl MCH (26-32) pg MCHC (32-36) g/dl RDW (11.5-14.0) % Plt Count (150-450) K/mm3 MPV (6-9.5) fl Gran % (36.0-66.0) % Eos # (Auto) (0-0.5) Absolute Lymphs (auto) (1.0-4.6) Absolute Monos (auto) (0.0-1.3) Lymphocytes % (24.0-44.0) % Monocytes % (0.0-12.0) % Eosinophils % (0.00-5.0) % Basophils % (0.0-0.4) % Absolute Granulocytes (1.4-6.9) Basophils # (0-0.4) Sodium (137-145) mmol/L Potassium (3.5-5.1) mmol/L Chloride (98-107) mmol/L Carbon Dioxide (22-30) mmol/L Anion Gap (5-15) MEQ/L BUN (7-17) mg/dL Creatinine (0.52-1.04) mg/dL Estimated GFR ML/MIN Glucose (74-106) mg/dL Lactic Acid 2.1 H (0.4-2.0) Calcium (8.4-10.2) mg/dL Total Bilirubin (0.2-1.3) mg/dL AST (14-36) U/L ALT (0-35) U/L Alkaline Phosphatase (38-126) U/L Serum Total Protein (6.3-8.2) g/dL Albumin (3.5-5.0) g/dL Amylase (30-110) U/L Lipase (23-300) U/L Serum , Qual (Negative) Ur Collection Type CLEAN CATCH Urine Color LT.YELLOW (YELLOW) Urine Appearance CLEAR (CLEAR) Urine pH 8.0 (5-6) Ur Specific [place] 1.010 (1.005-1.025) Urine Protein NEGATIVE (Negative) Urine Ketones NEGATIVE (NEGATIVE) Urine Blood NEGATIVE (0-5) Mac/ul Urine Nitrite NEGATIVE (NEGATIVE) Urine Bilirubin NEGATIVE (NEGATIVE) Urine Urobilinogen NORMAL (0-1) mg/dL Ur Leukocyte Esterase NEGATIVE (NEGATIVE) Urine Culture Reflexed NO (NO) Urine Glucose NEGATIVE (NEGATIVE) mg/dL Urine Opiates Level POSITIVE (NEGATIVE) Ur Methadone NEGATIVE (NEGATIVE) Urine Barbiturates NEGATIVE (NEGATIVE) Ur Phencyclidine (PCP) NEGATIVE (NEGATIVE) Urine Amphetamine NEGATIVE (NEGATIVE) U Benzodiazepine Level POSITIVE (NEGATIVE) Urine Cocaine NEGATIVE (NEGATIVE) Urine Marijuana (THC) NEGATIVE (NEGATIVE) 06/09/18 06/09/18 06/09/18 Range/Units 21:45 21:45 21:45 WBC 9.4 (4.0-10.5) K/mm3 RBC 4.61 (4.1-5.4) M/mm3 Hgb 13.4 (12.0-16.0) gm/dl Hct 40.5 (35-47) % MCV 87.9 (78-100) fl MCH 29.1 (26-32) pg MCHC 33.1 (32-36) g/dl RDW 13.7 (11.5-14.0) % Plt Count 367 (150-450) K/mm3 MPV 9.7 H (6-9.5) fl Gran % 55.5 (36.0-66.0) % Eos # (Auto) 0.24 (0-0.5) Absolute Lymphs (auto) 3.46 (1.0-4.6) Absolute Monos (auto) 0.45 (0.0-1.3) Lymphocytes % 36.7 (24.0-44.0) % Monocytes % 4.8 (0.0-12.0) % Eosinophils % 2.5 (0.00-5.0) % Basophils % 0.5 (0.0-0.4) % Absolute Granulocytes 5.22 (1.4-6.9) Basophils # 0.05 (0-0.4) Sodium 140 (137-145) mmol/L Potassium 4.1 (3.5-5.1) mmol/L Chloride 104 (98-107) mmol/L Carbon Dioxide 26 (22-30) mmol/L Anion Gap 14.0 (5-15) MEQ/L BUN 7 (7-17) mg/dL Creatinine 0.51 L (0.52-1.04) mg/dL Estimated GFR > 60.0 ML/MIN Glucose 96 (74-106) mg/dL Lactic Acid (0.4-2.0) Calcium 9.5 (8.4-10.2) mg/dL Total Bilirubin 0.40 (0.2-1.3) mg/dL AST 35 (14-36) U/L ALT 32 (0-35) U/L Alkaline Phosphatase 60 (38-126) U/L Serum Total Protein 6.8 (6.3-8.2) g/dL Albumin 4.2 (3.5-5.0) g/dL Amylase 49 (30-110) U/L Lipase 30 (23-300) U/L Serum , Qual NEGATIVE (Negative) Ur Collection Type Urine Color (YELLOW) Urine Appearance (CLEAR) Urine pH (5-6) Ur Specific [place] (1.005-1.025) Urine Protein (Negative) Urine Ketones (NEGATIVE) Urine Blood (0-5) Mac/ul Urine Nitrite (NEGATIVE) Urine Bilirubin (NEGATIVE) Urine Urobilinogen (0-1) mg/dL Ur Leukocyte Esterase (NEGATIVE) Urine Culture Reflexed (NO) Urine Glucose (NEGATIVE) mg/dL Urine Opiates Level (NEGATIVE) Ur Methadone (NEGATIVE) Urine Barbiturates (NEGATIVE) Ur Phencyclidine (PCP) (NEGATIVE) Urine Amphetamine (NEGATIVE) U Benzodiazepine Level (NEGATIVE) Urine Cocaine (NEGATIVE) Urine Marijuana (THC) (NEGATIVE) - Progress Progress: improved Progress Note: 06/10/18 00:05 Pt given MSO4 4 mg, ativan 1 mg, and NS IV with good results. Discussed pt with Dr Gonzalez who will see pt tomorrow morning as a walk-in. Counseled pt/family regarding: lab results, diagnosis, need for follow-up (with Dr Gonzalez.), rad results - Departure Time of Disposition: 00:06 Departure Disposition: Home Clinical Impression: Chronic abdominal pain Condition: Stable Critical Care Time: No Referrals: NICOLE BOWDEN [Primary Care Provider] - Additional Instructions: You have chronic abdominal pain from an unknown cause. You were given morphine 4 mg, Ativan 1 mg, and fluids by IV in the ER. You are to be seen as a walk-in patient at 's office tomorrow morning.
[2018-06-09] MEDS ORDERED: Sodium Chloride 0.9% 1000 ML 1,000 ML IV STA (21:43)
[2018-06-09] MEDS ORDERED: Zofran 4 MG/2 ML VIAL IV ONE (21:43)
[2018-06-09] MEDS ORDERED: MORPHINE SULFATE 4 MG INJ IV ONE (21:43)
[2018-06-09] MEDS ORDERED: Ativan 2 MG/1 ML VIAL IV ONE (21:46)
[2018-06-09] MEDS ORDERED: Sodium Chloride 0.9% 1000 ML 1,000 ML ONE (21:50)
[2018-06-09] MEDS ORDERED: Ativan 2 MG/1 ML VIAL ONE (21:50)
[2018-06-09] MEDS ORDERED: Zofran 4 MG/2 ML VIAL ONE (21:50)
[2018-06-09] MEDS ORDERED: MORPHINE SULFATE 4 MG INJ ONE (21:50)
[2018-06-09 22:02] LABS: BASOPHIL % 0.5 % (0.0-0.4); Basophil (Absolute #) 0.05 (0-0.4); Eosinophil % 2.5 % (0.00-5.0); Eosinophil (Absolute #) 0.24 (0-0.5); Granulocyte Absolute (ANC) 5.22 (1.4-6.9); Granulocytes % 55.5 % (36.0-66.0); Hematocrit 40.5 % (35-47); Hemoglobin 13.4 gm/dl (12.0-16.0); Lymphocyte (Absolute #) 3.46 (1.0-4.6); Lymphocytes % 36.7 % (24.0-44.0); Mean Cell Volume 87.9 fl (78-100); Mean Corpuscular Hemoglobin 29.1 pg (26-32); Mean Corpuscular Hgb Concent. 33.1 g/dl (32-36); Mean Platelet Volume 9.7 fl (6-9.5); Monocyte (Absolute #) 0.45 (0.0-1.3); Monocytes % 4.8 % (0.0-12.0); Platelet Count 367 K/mm3 (150-450); Red Blood Count 4.61 M/mm3 (4.1-5.4); Red Cell Distribution Width 13.7 % (11.5-14.0); White Blood Count 9.4 K/mm3 (4.0-10.5)
[2018-06-09 22:06] VITALS: PULSE 94; O2SAT 99
[2018-06-09 22:21] LABS: Lactic Acid 2.1 (0.4-2.0)
[2018-06-09 22:27] LABS: ALBUMIN 4.2 g/dL (3.5-5.0); ALKALINE PHOSPHATASE 60 U/L (38-126); AMYLASE 49 U/L (30-110); BLOOD UREA NITROGEN 7 mg/dL (7-17); CHLORIDE 104 mmol/L (98-107); Calcium 9.5 mg/dL (8.4-10.2); Carbon Dioxide 26 mmol/L (22-30); Creatinine 1 0.51 mg/dL (0.52-1.04); Glucose 96 mg/dL (74-106); LIPASE 30 U/L (23-300); Potassium 4.1 mmol/L (3.5-5.1); SGOT/AST 35 U/L (14-36); SGPT/ALT 32 U/L (0-35); SODIUM 140 mmol/L (137-145); Total Protein 6.8 g/dL (6.3-8.2)
[2018-06-09 22:56] LABS: Appearance CLEAR (CLEAR); Bilirubin NEGATIVE (NEGATIVE); Blood NEGATIVE Ery/ul (0-5); Glucose NEGATIVE (NEGATIVE); Ketones NEGATIVE (NEGATIVE); Leukocyte Esterase NEGATIVE (NEGATIVE); Nitrite NEGATIVE (NEGATIVE); Protein,Urine Dip NEGATIVE (Negative); Urobilinogen NORMAL mg/dL (0-1)
[2018-06-09 23:11] LABS: Amphetamine,Urine NEGATIVE (NEGATIVE); Barbiturate,Urine NEGATIVE (NEGATIVE); Benzodiazepine,Urine POSITIVE (NEGATIVE); Cocaine,Urine NEGATIVE (NEGATIVE); Methadone,Urine NEGATIVE (NEGATIVE); Opiate,Urine POSITIVE (NEGATIVE); PCP,Urine NEGATIVE (NEGATIVE); THC,Urine NEGATIVE (NEGATIVE)
[2018-06-10 00:10] VITALS: BP 122/93
--- NOTE | 2018-06-10 09:06 | XRAY ---
Indication: Abdominal pain, nausea, vomiting, and diarrhea 2 weeks. Multiple contiguous axial images obtained through the abdomen and pelvis without contrast as ordered. Comparison: November 12, 2016. Lung bases dense is mild bibasilar dependent atelectasis. Heart is not enlarged. Noncontrasted stomach and bowel loops appear nonobstructed. Normal appendix. No free fluid/air. Again prominent uterus with thickened endometrial cavity possibly related to menses. Stable tiny right lobe hepatic cyst. Remaining liver, gallbladder, pancreas, spleen, adrenal glands, kidneys, ureters, bladder, and aorta appear unremarkable for noncontrast exam. Osseous structures intact. No ventral or inguinal hernias. Impression: 1. Again prominent uterus with thickened endometrial cavity. Correlate with menstrual cycle. Pelvic sonogram may yield further information if clinically warranted. 2. Stable tiny hepatic cyst. Comment: Preliminary interpretation was made by [facility]. No discrepancy. CT DI 16.96
== END 2018-06-10 00:17 | disposition home or self-care (01) ==
LOC: ED 20:16
DX: R10.9 Unspecified abdominal pain (principal); R11.2 Nausea with vomiting, unspecified; Z79.899 Other long term (current) drug therapy
CPT/HCPCS: 36000; 36415; 74176; 80053; 80307; 81003; 82150; 83605; 83690; 84703; 85025; 96360; 96374; 96375; 99284; J2060; J2270; J2405

== ENCOUNTER 2018-07-08 13:34 | Emergency (ER) | payer MEDICAID ==
[2018-07-08 14:32] VITALS: PULSE 97
--- NOTE | 2018-07-08 14:46 | ERPHSYRPT ---
- History of Present Illness Time Seen by Provider: 07/08/18 14:25 Source: patient Patient Subjective Stated Complaint: HERE FOR SORETHROAT AND ACHES FOR 2 DAYS, Triage Nursing Assessment: PT ALERT, RESP EASY, SKIN W/D/P. THROAT RED Physician History: 33 y/o white female presents with 2 day h/o sore throat not responding to chloraseptic or cough drops. has a tendency to get bronchitis and pneumonia. Timing/Duration: gradual onset, days (2) Severity: mild ENT Location: throat Prearrival Treatment: over the counter meds Modifying Factors: Improves With: coughing Associated Symptoms: cough, sore throat Allergies/Adverse Reactions: Penicillins Allergy (Intermediate, Verified 06/09/18 20:38) Hives cephalexin monohydrate [From Keflex] Allergy (Mild, Verified 06/09/18 20:38) Rash Home Medications: Pregabalin [Lyrica 75 mg Cap] 150 mg PO BID 03/13/16 [History] Omeprazole 20 MG [Prilosec 20 mg] 20 mg PO DAILY 08/11/16 [History] Atorvastatin Calcium [Lipitor] 10 mg PO DAILY 04/12/17 [History] Mesalamine [Lialda] 2.4 gm PO DAILY 04/12/17 [History] Alprazolam 1 mg [Xanax 1 mg] 1 mg PO BID 06/09/18 [History] Dicyclomine HCl 20 mg [Bentyl 20 mg] 20 mg PO QID 06/09/18 [History] Oxycodone HCl/Acetaminophen [Oxycodon-Acetaminophen 7.5-325] 1 tab PO TID PRN [History] Promethazine HCl 25 mg [Phenergan 25 mg] 25 mg PO Q6H PRN 06/09/18 [ History] Hx Tetanus, Diphtheria Vaccination/Date Given: Yes Hx Influenza Vaccination/Date Given: No Hx Pneumococcal Vaccination/Date Given: No Immunizations Up to Date: Yes - Review of Systems Constitutional: No Symptoms, Fever Eyes: No Symptoms Ears, Nose, & Throat: Painful Swallowing Respiratory: Cough, No Dyspnea, No Stridor, No Wheezing Cardiac: No Symptoms, No Chest Pain, No Edema, No Palpitations, No Syncope Abdominal/Gastrointestinal: No Symptoms, No Abdominal Pain, No Nausea, No Vomiting, No Diarrhea Genitourinary Symptoms: No Symptoms, No Dysuria, No Frequency, No Hematuria Musculoskeletal: No Symptoms, No Back Pain Skin: No Symptoms Neurological: No Symptoms Psychological: No Symptoms Endocrine: No Symptoms Hematologic/Lymphatic: No Symptoms Immunological/Allergic: No Symptoms All Other Systems: Reviewed and Negative - Past Medical History Pertinent Past Medical History: Yes Neurological History: Migraines ENT History: No Pertinent History Cardiac History: Arrhythmia Respiratory History: No Pertinent History Endocrine Medical History: Other Musculoskeletal History: Arthritis, Fibromyalgia, Rheumatoid Arthritis GI Medical History: Crohns Disease History: No Pertinent History Psycho-Social History: Anxiety, Depression Female Reproductive Disorders: Other Other Medical History: OVARIAN CYSTS, hpv - Past Surgical History Past Surgical History: Yes Neuro Surgical History: No Pertinent History Cardiac: Cardiac Catheterization Respiratory: No Pertinent History Gastrointestinal: No Pertinent History Genitourinary: No Pertinent History Musculoskeletal: No Pertinent History Female Surgical History: Section, Tubal Ligation Other Surgical History: colonoscopy et egd. heart cath- sep 20 2016 - Social History Smoking Status: Current every day smoker How long have you smoked: 15 yrs Exposure to second hand smoke: Yes Drug Use: none Patient Lives Alone: No - Female History Hx Last Menstrual Period: 4 DAYS AGO Hx Now: No - Nursing Vital Signs Nursing Vital Signs: Initial Vital Signs Temperature 98.0 F 07/08/18 14:26 Pulse Rate 97 H 07/08/18 14:26 Respiratory Rate 16 07/08/18 14:26 Blood Pressure 147/83 07/08/18 14:26 O2 Sat by Pulse Oximetry 98 07/08/18 14:26 Pain Scale Pain Intensity 8 - Physical Exam General Appearance: no apparent distress, mild distress, alert Eye Exam: bilateral eye: normal inspection, PERRL, EOMI Ear Exam: bilateral ear: auricle normal, canal normal, TM normal Nasal Exam: normal inspection Throat Exam: pharynx tenderness, uvula swelling Neck Exam: normal inspection, non-tender, supple, full range of motion, trachea midline Cardiovascular/Respiratory Exam: chest non-tender, normal breath sounds, regular rate/rhythm, heart sounds normal Abdominal Exam: non-tender, soft, No guarding, No tenderness Neurologic Exam: alert, oriented x 3, cooperative, tack cleaner II-XII nml as tested Skin Exam: normal color, warm SpO2 Interpretation: normal SpO2: 98 Oxygen Delivery: Room Air - Course Nursing assessment & vital signs reviewed: Yes - Progress Progress: unchanged Counseled pt/family regarding: diagnosis, need for follow-up - Departure Time of Disposition: 14:52 Departure Disposition: Home Clinical Impression: Pharyngitis Condition: Stable Critical Care Time: No Referrals: NICOLE GAN [Primary Care Provider] - Additional Instructions: drink plenty of fluids. follow up with primary doctor for persistent symptoms Prescriptions: Azithromycin 250 mg [Zithromax 250 MG TABLET] 250 mg PO ZPACK #6 tablet Hydrocodone Bit/Acetaminophen [Hydrocodone-Acetaminophen Soln] 10 ml PO Q6H # 120 ml Prednisone 10 mg [Deltasone 10 mg] 10 mg PO TID #12 tablet
[2018-07-08] MEDS ORDERED: HYDROCODONE-ACETAMIN 2.5-108/5 ML SOLUTION PO STA (14:47)
[2018-07-08] MEDS ORDERED: DELTASONE 20 MG ONE (15:02)
[2018-07-08] MEDS ORDERED: HYDROCODONE-ACETAMIN 2.5-108/5 ML SOLUTION ONE (15:02)
[2018-07-08 15:27] VITALS: BP 120/74; O2SAT 97
[2018-07-09] MEDS ORDERED: DELTASONE 20 MG PO ONE (14:47)
== END 2018-07-08 15:29 | disposition home or self-care (01) ==
LOC: ED 13:34
DX: J02.9 Acute pharyngitis, unspecified (principal); Z79.899 Other long term (current) drug therapy
CPT/HCPCS: 99283; A9270-GY

== ENCOUNTER 2018-10-08 23:31 | Emergency (ER) | payer MEDICAID ==
[2018-10-09] MEDS ORDERED: Zofran 4 MG/2 ML VIAL IV ONE (01:06)
[2018-10-09] MEDS ORDERED: Zofran 4 MG/2 ML VIAL ONE (01:22)
[2018-10-09 01:46] LABS: BASOPHIL % 0.3 % (0.0-0.4); Basophil (Absolute #) 0.03 (0-0.4); Eosinophil % 1.7 % (0.00-5.0); Eosinophil (Absolute #) 0.17 (0-0.5); Granulocytes % 51.2 % (36.0-66.0); Hematocrit 39.2 % (35-47); Hemoglobin 12.8 gm/dl (12.0-16.0); Lymphocyte (Absolute #) 3.86 (1.0-4.6); Lymphocytes % 39.5 % (24.0-44.0); Mean Cell Volume 88.5 fl (78-100); Mean Corpuscular Hemoglobin 28.9 pg (26-32); Mean Corpuscular Hgb Concent. 32.7 g/dl (32-36); Mean Platelet Volume 9.7 fl (6-9.5); Monocyte (Absolute #) 0.71 (0.0-1.3); Monocytes % 7.3 % (0.0-12.0); Platelet Count 363 K/mm3 (150-450); Red Blood Count 4.43 M/mm3 (4.1-5.4); Red Cell Distribution Width 14.5 % (11.5-14.0); White Blood Count 9.8 K/mm3 (4.0-10.5)
[2018-10-09 01:53] LABS: ALBUMIN 4.3 g/dL (3.5-5.0); ALKALINE PHOSPHATASE 68 U/L (38-126); AMYLASE 58 U/L (30-110); ANION GAP 13.4 MEQ/L (5-15); BLOOD UREA NITROGEN 9 mg/dL (7-17); CHLORIDE 106 mmol/L (98-107); Calcium 9.8 mg/dL (8.4-10.2); Carbon Dioxide 24 mmol/L (22-30); Creatinine 1 0.52 mg/dL (0.52-1.04); Glucose 92 mg/dL (74-106); LIPASE 69 U/L (23-300); Potassium 3.9 mmol/L (3.5-5.1); SGOT/AST 41 U/L (14-36); SGPT/ALT 32 U/L (0-35); SODIUM 139 mmol/L (137-145); Total Protein 7.2 g/dL (6.3-8.2)
[2018-10-09] MEDS ORDERED: MORPHINE SULFATE 2 MG INJ IV ONE (02:47)
[2018-10-09] MEDS ORDERED: MORPHINE SULFATE 2 MG INJ ONE (02:49)
--- NOTE | 2018-10-09 03:25 | ERPHSYRPT ---
- History of Present Illness Historian: patient Exam Limitations: no limitations Patient Subjective Stated Complaint: Pt states that she came to the ER due to abd pain not getting better and no bowel movements pt states that she was told that she a scan that showed that she has some blockage in her bowel yesterday Pt states that she took a Oxycodone and tylenol later due to a fever she had to help with her belly pain and her pain didn't get better so she came to be checked out at this time Triage Nursing Assessment: Pt states that she came to the ER due to abd pain not getting better and no bowel movements pt states that she was told that she a scan that showed that she has some blockage in her bowel yesterday Pt states that she took a Oxycodone and tylenol later due to a fever she had to help with her belly pain and her pain didn't get better so she came to be checked out. Pt is grimacing and holding her abd and is nauseated, Pts abd is tender with palpation and bowel sounds present in all guads at this time Physician History: Pt is a 33 y/o female with h/o Crohn's, that presented yesterday to [facility], with same complains of abdominal pain nausea and vomiting and diarrhea. Pt had full work up in previous ED, and was not sure what her diagnosis was, but did not have any improvement of symptoms, and presented to the ED today. Pt complains of vomiting feces, severe abdominal pain and diarrhea. Timing/Duration: day(s) Activities at Onset: none Quality: aching, cramping Abdominal Pain Onset Location: generalized abdomen Severity of Pain-Max: severe Severity of Pain-Current: severe Modifying Factors: Improves With: analgesics Associated Symptoms: diarrhea, nausea, vomiting Allergies/Adverse Reactions: Penicillins Allergy (Intermediate, Verified 10/09/18 00:07) Hives cephalexin monohydrate [From Keflex] Allergy (Mild, Verified 10/09/18 00:07) Rash Home Medications: Pregabalin [Lyrica 75 mg Cap] 150 mg PO BID 03/13/16 [History] Omeprazole 20 MG [Prilosec 20 mg] 20 mg PO DAILY 08/11/16 [History] Atorvastatin Calcium [Lipitor] 10 mg PO DAILY 04/12/17 [History] Mesalamine [Lialda] 2.4 gm PO DAILY 04/12/17 [History] Alprazolam 1 mg [Xanax 1 mg] 1 mg PO BID 06/09/18 [History] Dicyclomine HCl 20 mg [Bentyl 20 mg] 60 mg PO QID 06/09/18 [History] Oxycodone HCl/Acetaminophen [Oxycodon-Acetaminophen 7.5-325] 1 tab PO TID PRN [History] Promethazine HCl 25 mg [Phenergan 25 mg] 25 mg PO Q6H PRN 06/09/18 [ History] Empagliflozin [Jardiance] 10 mg PO DAILY 10/09/18 [History] Sumatriptan Succinate 25 mg [Imitrex 25 MG] 25 mg PO PRN 10/09/18 [History] Hx Tetanus, Diphtheria Vaccination/Date Given: Yes Hx Influenza Vaccination/Date Given: No Hx Pneumococcal Vaccination/Date Given: No - Review of Systems Constitutional: No Fever, No Chills Respiratory: No Cough, No Dyspnea Cardiac: No Chest Pain, No Edema, No Syncope Abdominal/Gastrointestinal: Abdominal Pain, Nausea, Vomiting, Diarrhea Genitourinary Symptoms: No Dysuria Musculoskeletal: No Back Pain, No Neck Pain - Past Medical History Pertinent Past Medical History: Yes Neurological History: Migraines ENT History: No Pertinent History Cardiac History: Arrhythmia Respiratory History: Asthma Endocrine Medical History: Diabetes Type II, Other Musculoskeletal History: Arthritis, Fibromyalgia, Rheumatoid Arthritis GI Medical History: Crohns Disease History: No Pertinent History Psycho-Social History: Anxiety, Depression, Panic Disorder Female Reproductive Disorders: Other Other Medical History: OVARIAN CYSTS, hpv - Past Surgical History Past Surgical History: Yes Neuro Surgical History: No Pertinent History Cardiac: Cardiac Catheterization Respiratory: No Pertinent History Gastrointestinal: No Pertinent History Genitourinary: No Pertinent History Musculoskeletal: No Pertinent History Female Surgical History: Section, Tubal Ligation Other Surgical History: colonoscopy et egd. heart cath- sep 20 2016 - Social History Smoking Status: Current every day smoker How long have you smoked: 15 yrs Exposure to second hand smoke: Yes Drug Use: none Patient Lives Alone: No - Female History Hx Last Menstrual Period: 09/12/18 Hx Now: No - Nursing Vital Signs Nursing Vital Signs: Initial Vital Signs Temperature 98 F 10/09/18 00:17 Pulse Rate 86 01/24/19 00:17 Respiratory Rate 20 10/09/18 00:17 Blood Pressure 126/80 10/09/18 00:17 O2 Sat by Pulse Oximetry 100 10/09/18 00:17 Pain Scale Pain Intensity 9 - Physical Exam General Appearance: moderate distress Neck Exam: normal inspection, non-tender, supple, full range of motion Respiratory Exam: normal breath sounds, lungs clear, No respiratory distress Cardiovascular Exam: regular rate/rhythm, normal heart sounds Gastrointestinal/Abdomen Exam: soft, tenderness (mild, with deep palpation, throughout. No gourding or rebound.) Pelvic Exam: not done Rectal Exam: deferred SpO2: 96 - Radiology Exams Abdomen X-ray Interpretation: Interpreted by me (No SBO, contrast vs constipation in bowel.) Ordered Tests: Active Orders 24 hr Category Date Time Status KUB Stat Exams 10/09/18 Ordered AMYLASE Stat Lab 10/09/18 01:40 Completed CBC W DIFF Stat Lab 10/09/18 01:40 Completed CMP Stat Lab 10/09/18 01:40 Completed LIPASE Stat Lab 10/09/18 01:40 Completed Lactic Acid Stat Lab 10/09/18 02:37 Completed UA W/RFX UR CULTURE Stat Lab 10/09/18 01:41 Uncollected Medication Summary Discontinued Medications Generic Name Dose Route Start Last Admin Trade Name David PRN Reason Stop Dose Admin Morphine Sulfate 2 mg 10/09/18 02:47 10/09/18 02:51 Morphine Sulfate 2 Mg Inj IV 10/09/18 02:48 2 mg STAT ONE Administration Morphine Sulfate Confirm 10/09/18 02:49 Morphine Sulfate 2 Mg Inj Administered 10/09/18 02:50 Dose 2 mg .ROUTE .STK-MED ONE Ondansetron HCl 4 mg 10/09/18 01:06 10/09/18 01:23 Zofran 4 Mg/2 Ml Vial IV 10/09/18 01:07 4 mg STAT ONE Administration Ondansetron HCl Confirm 10/09/18 01:22 Zofran 4 Mg/2 Ml Vial Administered 10/09/18 01:23 Dose 4 mg .ROUTE .STK-MED ONE Lab/Rad Data: Laboratory Result Diagrams 10/09/18 01:40 10/09/18 01:40 Laboratory Results 01/10/09/18 10/09/18 Range/Units 02:37 01:40 01:40 WBC 9.8 (4.0-10.5) K/mm3 RBC 4.43 (4.1-5.4) M/mm3 Hgb 12.8 (12.0-16.0) gm/dl Hct 39.2 (35-47) % MCV 88.5 (78-100) fl MCH 28.9 (26-32) pg MCHC 32.7 (32-36) g/dl RDW 14.5 H (11.5-14.0) % Plt Count 363 (150-450) K/mm3 MPV 9.7 H (6-9.5) fl Gran % 51.2 (36.0-66.0) % Eos # (Auto) 0.17 (0-0.5) Absolute Lymphs (auto) 3.86 (1.0-4.6) Absolute Monos (auto) 0.71 (0.0-1.3) Lymphocytes % 39.5 (24.0-44.0) % Monocytes % 7.3 (0.0-12.0) % Eosinophils % 1.7 (0.00-5.0) % Basophils % 0.3 (0.0-0.4) % Absolute Granulocytes 5.00 (1.4-6.9) Basophils # 0.03 (0-0.4) Sodium 139 (137-145) mmol/L Potassium 3.9 (3.5-5.1) mmol/L Chloride 106 (98-107) mmol/L Carbon Dioxide 24 (22-30) mmol/L Anion Gap 13.4 (5-15) MEQ/L BUN 9 (7-17) mg/dL Creatinine 0.52 (0.52-1.04) mg/dL Estimated GFR > 60.0 ML/MIN Glucose 92 (74-106) mg/dL Lactic Acid 1.7 (0.4-2.0) Calcium 9.8 (8.4-10.2) mg/dL Total Bilirubin 0.70 (0.2-1.3) mg/dL AST 41 H (14-36) U/L ALT 32 (0-35) U/L Alkaline Phosphatase 68 (38-126) U/L Serum Total Protein 7.2 (6.3-8.2) g/dL Albumin 4.3 (3.5-5.0) g/dL Amylase 58 (30-110) U/L Lipase 69 (23-300) U/L - Progress Progress: unchanged Will see patient in: other (Transfer to regional ER, accepting Dr Lyn) - Departure Time of Disposition: 03:26 Departure Disposition: Transfer ([facility] ER, Dr Lyn) Clinical Impression: Abdominal pain Condition: Stable Critical Care Time: No Referrals: NICOLE GAN [Primary Care Provider] -
[2018-10-09 03:51] VITALS: BP 119/72; PULSE 97; O2SAT 97
[2018-10-09 04:05] LABS: Appearance CLEAR (CLEAR); Bilirubin NEGATIVE (NEGATIVE); Blood NEGATIVE Ery/ul (0-5); Epithelial Cells RARE /HPF (FEW); Glucose NEGATIVE (NEGATIVE); Ketones NEGATIVE (NEGATIVE); Leukocyte Esterase NEGATIVE (NEGATIVE); Mucus SLIGHT /HPF (NEGATIVE); Nitrite NEGATIVE (NEGATIVE); Protein,Urine Dip NEGATIVE (Negative); Urobilinogen 2 mg/dL (0-1); WBC 0-2 /HPF (0-5)
--- NOTE | 2018-10-09 09:10 | XRAY ---
Indication: Abdomen pain. Comparison: None KUB demonstrates radiopacity throughout the colon presumed ingested medication/bismuth or enteric contrast and limits the exam. Bowel gas pattern nonobstructed. Small right pelvic phlebolith. Remaining solid organs and osseous structures unremarkable. Impression: Negative limited KUB.
== END 2018-10-09 04:05 | disposition short-term general hospital (02) ==
LOC: ED 23:31
DX: R10.9 Unspecified abdominal pain (principal); Z79.899 Other long term (current) drug therapy; R11.2 Nausea with vomiting, unspecified; E11.9 Type 2 diabetes mellitus without complications; M19.90 Unspecified osteoarthritis, unspecified site; M79.7 Fibromyalgia; M06.9 Rheumatoid arthritis, unspecified; K50.90 Crohn's disease, unspecified, without complications; F41.8 Other specified anxiety disorders; Z72.0 Tobacco use
CPT/HCPCS: 36000; 36415; 74018; 80053; 81001; 82150; 83605; 83690; 85025; 96374; 96375; 99285; J2270; J2405